=== PATIENT | male | born 1960 | race Caucasian/White ===

== ENCOUNTER 2017-09-20 16:42 | Emergency (ER) | payer BC ==
[~2017-09-20 16:42] MED LIST: AMLO-104 PO; AMLO-96 PO; ASPI-1471 PO; ATEN-65 PO; ATOR40TA69 PO; ATR10 PO; BLOO-1318 MC; CARV12.578 PO; CARV25TA78 PO; CIPR-344 PO; CLIN300C99 PO; CLOP75TA PO; CLOP75TA43 PO; FURO-47 PO; HCTZ25 PO; HYDR-4309 PO; INSU100V24 SQ; ISOS20TA64 PO; LANI SUBQ; LISI-374 PO; LISI20TA29 PO; METF-410 PO; METF-420 PO; METO25TA23 PO; NAPR220C12 PO; NOVALOG SC; NOVOLOG SUBQ; NPH SC; PHEN100T27 PO; POTA-23 PO; SIMV-54 PO; SIMV-59 PO; SIMV5TAB60 PO; [UNRECOGNIZED DRUG - CODE] IM
--- NOTE | 2017-09-20 16:48 | ER Report ---
History and Physical Time Seen By MD: 16:47 HPI/ROS CHIEF COMPLAINT: neck and left arm pain HISTORY OF PRESENT ILLNESS: Pt has been having a dullache in left side of his neck into his shoulder and down his tricep. No numbness to arm or weakness. Pain occurs at anytime, rest or exertion. Gets the pain 4-5 times a day and length of time varies, Pt has been getting these episodes for last few weeks. Pt decided today to go to urgent care to have it checked. Pt has a cardiac hx and when he had his heart attack he had pain in his neck and arm. PT ws sent for urgent care to emergency room. Pt denies pain in chest with these episodes "just neck and arm". Pt has not had any chest pain episodes since he had his CABG in 2013. no sob. no nausea. REVIEW OF SYSTEMS: Constitutional: No fever, no chills. Eyes: No discharge. ENT: No sore throat. Cardiovascular: No chest pain, no palpitations. Respiratory: No cough, no shortness of breath. Gastrointestinal: No abdominal pain, no vomiting. Genitourinary: No hematuria. Musculoskeletal: No back pain. + left side of neck pain, + shoulder and arm pain on left Skin: No rashes. Neurological: No headache. Allergies: Coded Allergies: No Known Allergies (Verified Allergy, Mild, 10/17/16) Home Meds Active Scripts Blood Sugar Diagnostic (ONE TOUCH ULTRA TEST STRIPS) 1 Each Strip, 1 EACH MC TID , #100 STRIP PRN Refills use to test blood sugars three times daily Prov:WILLOW PINA APRNP-C 05/02/17 Insulin Glargine (LANTUS) 100 Unit/Ml Soln, 46 UNIT SUBQ BID, #4 VIAL 14 Refills Prov:WILLOW PINA APRN APPLICATIONS SCIENTIST-C 04/09/17 Lisinopril (LISINOPRIL) 40 Mg Tablet, 1 TAB PO QDAY, #90 TAB 3 Refills Prov:WILLOW PINA APRNP-C 04/09/17 Carvedilol (CARVEDILOL) 25 Mg Tablet, 1 TAB PO BID, #180 TAB 3 Refills Prov:WILLOW PINA APRN APPLICATIONS SCIENTIST-C 11/09/16 Insulin Aspart (NOVOLOG) 100 Unit/Ml Soln, 16-20 UNIT SUBQ TIDAC, #2 VIAL 11 Refills 16 units plus 1 unit for every 50 above 100 on blood sugar Prov:WILLOW PINA APRN APPLICATIONS SCIENTIST-C 10/04/16 Metformin Hcl (METFORMIN HCL) 500 Mg Tablet, 2 TAB PO BID, #360 TAB 4 Refills TAKE TWO TABLETS BY MOUTH TWO TIMES A DAY WITH FOOD Prov:NEOGENET Marin DNP, APPLICATIONS SCIENTIST-BC 10/02/16 Reported Medications Naproxen Sodium (ALEVE) 220 Mg Capsule, 440 MG PO TID Y for PAIN/HEADACHE, CAPSULE 11/30/15 Atorvastatin Calcium (ATORVASTATIN CALCIUM) 40 Mg Tablet, 1 TAB PO DAILY, #90 11/01/15 Amlodipine Besylate (AMLODIPINE BESYLATE) 5 Mg Tablet, 1 TAB PO DAILY, #90 11/01/15 Syringe, Disposable, 1 ml (Easy Touch Luer Lock Syringe) 1 Each Disp.syrin, SYR IM BID, #100 8 Refills 10/08/15 Aspirin (ASPIR 81) 81 Mg Tablet.dr, 1 TAB PO QDAY, TAB 04/15/14 Past Medical/Surgical History Pmhx: dm, cad, hyperlipid, htn, mi Pshx; cabg (2 vessel, 08/08); PTCA (coronary 06/06) Reviewed Nurses Notes: Yes Old Medical Records Reviewed: Yes Hx Smoking: No Smoking Status: Never Smoker Exposure to Second Hand Smoke?: Yes (SOMETIMES) Hx Substance Use Disorder: No Hx Alcohol Use: Yes Constitutional Vital Sign - Last 24 Hours 09/20/17 09/20/17 09/20/17 09/20/17 16:42 16:47 16:49 16:52 Temp 98.8 Pulse ? 75 ??? Resp 16 B/P (MAP) 218/108 Pulse Ox 92 93 O2 Delivery Room Air 09/20/17 09/20/17 09/20/17 09/20/17 16:53 16:57 16:59 17:02 Pulse 75 73 Resp 6 19 B/P (MAP) 218/106 (143) 213/102 (139) Pulse Ox 95 94 Physical Exam General Appearance: The patient is alert, has no immediate need for airway protection and no signs of toxicity. Eyes: Pupils equal and round no pallor or injection, EOMI ENT: no pharyngeal erythema or exudates, Mucous membranes are moist, Respiratory: There are no retractions, lungs are clear to auscultation. Cardiovascular: Regular rate and rhythm. pulses are equal and symmetrical Gastrointestinal: Abdomen is soft and non tender, no masses, bowel sounds normal, no guarding, no rigidity or rebound Neurological: Cranial nerves II-XII grossly intact, no sensory or motor loss Skin: Warm and dry, no rashes. Musculoskeletal: Neck is supple non tender, no vertebral tenderness Extremities are nontender, non swollen and have full range of motion. DIFFERENTIAL DIAGNOSIS: After history and physical exam differential diagnosis was considered for acs, mi, muscleskeletal, cervical radiculopathy Medical Decision Making Data Points Result Diagram: 09/20/17 1653 09/20/17 1653 Laboratory Hematology Test 09/20/17 16:53 Red Blood Count 5.42 M/uL (4.00-5.60) Mean Corpuscular Volume 92.4 fL (80.0-96.0) Mean Corpuscular Hemoglobin 32.0 pg (26.0-33.0) Mean Corpuscular Hemoglobin Concent 34.7 g/dL (32.0-36.0) Red Cell Distribution Width 13.6 % (11.5-14.5) Mean Platelet Volume 9.0 fL (7.2-11.1) Neutrophils (%) (Auto) 67.4 % (39.4-72.5) Lymphocytes (%) (Auto) 18.4 % (17.6-49.6) Monocytes (%) (Auto) 9.1 % (4.1-12.4) Eosinophils (%) (Auto) 4.3 % (0.4-6.7) Basophils (%) (Auto) 0.8 % (0.3-1.4) Nucleated RBC Relative Count (auto) 0.0 /100WBC Neutrophils # (Auto) 8.0 K/uL (2.0-7.4) Lymphocytes # (Auto) 2.2 K/uL (1.3-3.6) Monocytes # (Auto) 1.1 K/uL (0.3-1.0) Eosinophils # (Auto) 0.5 K/uL (0.0-0.5) Basophils # (Auto) 0.1 K/uL (0.0-0.1) Nucleated RBC Absolute Count (auto) 0.00 K/uL Sodium Level 139 mmol/L (137-145) Potassium Level 3.8 mmol/L (3.5-5.0) Chloride Level 101 mmol/L (98-107) Carbon Dioxide Level 29 mmol/L (22-30) Blood Urea Nitrogen 13 mg/dl (9-21) Creatinine 1.20 mg/dl (0.66-1.25) Glomerular Filtration Rate Calc > 60.0 Random Glucose 129 mg/dl (75-110) Calcium Level 8.8 mg/dl (8.4-10.2) Total Bilirubin 0.4 mg/dl (0.2-1.3) Aspartate Amino Transf (AST/SGOT) 23 U/L (0-35) Alanine Aminotransferase (ALT/SGPT) 28 U/L (0-56) Alkaline Phosphatase 93 U/L (0-126) Troponin I < 0.012 ng/ml Total Protein 7.1 gm/dl (6.3-8.2) Albumin 3.5 g/dl (3.5-5.0) Chemistry Test 09/20/17 16:53 White Blood Count 11.8 k/uL (4.5-11.0) Red Blood Count 5.42 M/uL (4.00-5.60) Hemoglobin 17.4 g/dL (14.0-18.0) Hematocrit 50.0 % (42.0-52.0) Mean Corpuscular Volume 92.4 fL (80.0-96.0) Mean Corpuscular Hemoglobin 32.0 pg (26.0-33.0) Mean Corpuscular Hemoglobin Concent 34.7 g/dL (32.0-36.0) Red Cell Distribution Width 13.6 % (11.5-14.5) Platelet Count 260 K/uL (150-450) Mean Platelet Volume 9.0 fL (7.2-11.1) Neutrophils (%) (Auto) 67.4 % (39.4-72.5) Lymphocytes (%) (Auto) 18.4 % (17.6-49.6) Monocytes (%) (Auto) 9.1 % (4.1-12.4) Eosinophils (%) (Auto) 4.3 % (0.4-6.7) Basophils (%) (Auto) 0.8 % (0.3-1.4) Nucleated RBC Relative Count (auto) 0.0 /100WBC Neutrophils # (Auto) 8.0 K/uL (2.0-7.4) Lymphocytes # (Auto) 2.2 K/uL (1.3-3.6) Monocytes # (Auto) 1.1 K/uL (0.3-1.0) Eosinophils # (Auto) 0.5 K/uL (0.0-0.5) Basophils # (Auto) 0.1 K/uL (0.0-0.1) Nucleated RBC Absolute Count (auto) 0.00 K/uL Glomerular Filtration Rate Calc > 60.0 Calcium Level 8.8 mg/dl (8.4-10.2) Total Bilirubin 0.4 mg/dl (0.2-1.3) Aspartate Amino Transf (AST/SGOT) 23 U/L (0-35) Alanine Aminotransferase (ALT/SGPT) 28 U/L (0-56) Alkaline Phosphatase 93 U/L (0-126) Troponin I < 0.012 ng/ml Total Protein 7.1 gm/dl (6.3-8.2) Albumin 3.5 g/dl (3.5-5.0) EKG/Imaging EKG Interpretation nsr @ 70 with when compared to 21-Sep-2014 no significant change ED Course/Re-evaluation Clinical Indication for ER IV: IV Access ED Course 09/20/2017 5:47:10 pm PTs troponin is normal and pt has been having symptoms 3 weeks on and off. Pt has never had cp but only scapula and arm pain which is most consistent with cervical radiculopathy. Pts blood pressure however is extremely elevated in ED. pt states his baseline is usually around 140/90 on three medications which he has been taking. PT is due for his evening htn meds shortly. will give dose of nitro to reduce his bp. Decision to Disposition Date: Sep 20, 2017 Decision to Disposition Time: 18:17 Depart Departure Latest Vital Signs Vital Signs Date Time Temp Pulse Resp B/P (MAP) Pulse Ox O2 Delivery O2 Flow Rate FiO2 09/20/17 17:02 73 19 94 09/20/17 16:59 213/102 (139) 09/20/17 16:49 98.8 Room Air Impression: Primary Impression: Cervical radicular pain Additional Impression: Hypertension Condition: Improved Disposition: HOME OR SELF-CARE Referrals: WILLOW PINA APRN APPLICATIONS SCIENTIST-C (PCP) 2 Days LUDWIG SMITH MD [facility] New Scripts Hydrocodone Bit/Acetaminophen (HYDROCODON-ACETAMINOPHEN 5-325) 1 Each Tablet 1 EACH PO Q4-6H Y for PAIN, #15 TAB Prov: HAMZAH ALVAREZ V DO 09/20/17 Methocarbamol (ROBAXIN-750) 750 Mg Tablet 750 MG PO Q4-6H Y for MUSCLE SPASMS, #30 TAB Prov: HAMZAH ALVAREZ V DO 09/20/17 Patient Instructions: Cervical Radiculopathy (GEN) Additional Instructions: Your xray today shows changes in cervical 5-7 with disc space narrowing. Cervical changes can cause pain down your arm. Recommend follow up with family doctor or orthopedics for further evaluation. You may need MRI to further evaluate. Robaxin one every 4-6 hours as needed for musclespasms and pain. Lortab one every 4 hours as needed for moderate pain (narcotic). Take your blood pressure medication. Problem Qualifiers Additional Impression: Hypertension Hypertension type: essential hypertension Qualified Codes: I10 - Essential ( primary) hypertension ANTONIOHAMZAH Severiano KRISHNA Sep 20, 2017 16:48
[2017-09-20] MEDS ORDERED: ASPIRIN 81 MG CHEW PO ONE (17:00)
[2017-09-20 17:10] LABS: PLATELET COUNT, AUTOMATED 260 K/uL (150-450)
--- NOTE | 2017-09-20 17:35 | EKG ---
[place] [facility] [place] NAME: DENAE LAWRENCE : [id number] MR: [id number] V: [id number] EXAM DATE: ORDERING PHYSICIAN: HAMZAH ALVAREZ TECHNOLOGIST: DIMAS Walton Reason : CARDIAC PROBLEM Blood Pressure : / mmHG Vent. Rate : 069 BPM Atrial Rate : 069 BPM P-R Int : 134 ms QRS Dur : 090 ms QT Int : 398 ms P-R-T Axes : 051 081 065 degrees QTc Int : 426 ms Normal sinus rhythm ST abnormality, possible digitalis effect Abnormal ECG When compared with ECG of 21-SEP-2014 16:15, No significant change was found Confirmed by JOSAFAT ROSAS ([id number]) on 09/21/2017 6:39:18 AM Referred By: Confirmed By:JOSAFAT ROSAS
[2017-09-20] MEDS ORDERED: NITROGLYCERIN 0.4 MG SUBL SL ONE (17:45)
--- NOTE | 2017-09-20 17:48 | RADIOLOGY IMAGING REPORT ---
FACILITY: [facility] [place] PATIENT NAME: Samanta Ellington : 1960 MR: [id number] V: [id number] EXAM DATE: ORDERING PHYSICIAN: HAMZAH ALVAREZ TECHNOLOGIST: Location: [facility] [place] Patient: Samanta Ellington : 1960 Visit/Account:[id number] Date of Sevice: 09/20/2017 Exam type: CERVICAL SPINE 2 OR 3 VIEW History: Chest pain, left-sided arm pain, open heart surgery four years ago Comparison: None. Findings: There is moderate disc space narrowing at C5-6 and C6-7. There is no evidence of acute fractures or subluxations in the cervical spine. No evidence of prevertebral soft tissue swelling. There are ext ensive vascular calcifications both sides of the neck likely vascular in etiology IMPRESSION: 1. Moderate spondylotic changes at C5-6 and C6-7 Extensive vascular calcifications both sides of the neck likely within the carotid arteries Report Dictated By: China Titus MD at 09/20/2017 5:42 PM Report E-Signed By: China Titus MD at 09/20/2017 5:43 PM WSN:[email or web address]
--- NOTE | 2017-09-20 17:49 | RADIOLOGY IMAGING REPORT ---
FACILITY: [facility] PATIENT NAME: Samanta Ellington : 1960 MR: [id number] V: [id number] EXAM DATE: ORDERING PHYSICIAN: HAMZAH ALVAREZ TECHNOLOGIST: [place] [facility] [place] Patient: Samanta Ellington : 1960 Visit/Account:[id number] Date of Sevice: 09/20/2017 Exam type: CHEST PA AND LAT History: Chest Pain Comparison: September 21, 2014. Findings: Sternotomy sutures again noted. No evidence of acute pulmonary consolidation, pleural effusions or o vert pulmonary edema.. Cardiac silhouette is unchanged in size. There are moderate spondylotic durant ges of the thoracic spine. IMPRESSION: 1. No acute cardiopulmonary process is seen Report Dictated By: China Titus MD at 09/20/2017 5:43 PM Report E-Signed By: China Titus MD at 09/20/2017 5:45 PM WSN:[email or web address]
[2017-09-20] MEDS ORDERED: METH-543 PO (18:20)
[2017-09-20] MEDS ORDERED: LOR5/325 PO (18:20)
[2017-09-20] MEDS ORDERED: METHOCARBAMOL 500 MG TAB PO ONE (18:25)
[2017-09-20 18:50] VITALS: BP 185/99
== END 2017-09-20 18:58 | disposition home or self-care (01) ==
LOC: ER 16:48
DX: M54.12 Radiculopathy, cervical region (principal); I10 Essential (primary) hypertension; R94.31 Abnormal electrocardiogram [ECG] [EKG]
CPT/HCPCS: 71046; 72040; 82040; 82247; 82310; 82374; 82435; 82565; 82947; 84075; 84132; 84155; 84295; 84450; 84460; 84484; 84520; 85025; 93005; 99284

== ENCOUNTER → 2017-09-28 | Outpatient (CLI) | payer BC ==
[~2017-09-28] MED LIST changes: +AMOX-559 PO; +LOR5/325 PO; +METH-543 PO; +PRED20TA6 PO
--- NOTE | 2017-09-28 11:54 | RADIOLOGY IMAGING REPORT ---
FACILITY: [facility] PATIENT NAME: Samanta Ellington : 1960 MR: [id number] V: [id number] EXAM DATE: ORDERING PHYSICIAN: MARGARITO HANSEN TECHNOLOGIST: Location: [facility] Patient: Samanta Ellington : 1960 Visit/Account:[id number] Date of Sevice: 09/28/2017 Technique: CHEST PA AND LAT HISTORY: worsening cough x2 wks Comparison studies: Chest radiographs September 20, 2017 FINDINGS: No lobar airspace consolidation. No pleural effusion. The cardiomediastinal silhouette is unchanged. IMPRESSION: 1. No acute cardiopulmonary process. Report Dictated By: Viraj Whipple DO at 09/28/2017 11:48 AM Report E-Signed By: Viraj Whipple DO at 09/28/2017 11:51 AM WSN:[id number]
== END ==
LOC: RAD 11:13
PROVIDERS: ATTEND Nurse Practitioner Family
DX: R05 Cough (principal)
CPT/HCPCS: 71046

== ENCOUNTER → 2018-01-15 | Outpatient (CLI) | payer BC ==
[~2018-01-15] MED LIST changes: +BENZ200C15 PO; +LOSA100T67 PO; -METF-410 PO; +METF-411 PO; +NEED-653 SC; -SIMV-59 PO; +SIMV-63 PO
== END ==
LOC: LAB 17:15
PROVIDERS: ATTEND Nurse Practitioner Family
DX: Z02.9 Encounter for administrative examinations, unspecified (principal)

== ENCOUNTER 2018-04-12 13:08 | Outpatient (RCR) | payer BC ==
[~2018-04-12 13:08] MED LIST changes: +AMLO-111 PO; -AMLO-96 PO; -HYDR-4309 PO; +HYDR-653 PO; -LOSA100T67 PO; +LOSA100T69 PO; -METF-411 PO; +METF-450 PO; +NOVOLOG ASDIRECTED
--- NOTE | 2018-04-12 16:23 | Medical Nutrition Therapy ---
Nutritional Education Nutrition Education Topic: Diabetic Nutrition (insulin pump training) Learning Readiness: Interested Teaching Methods: Discussion, Handout, Demonstration Response to Teaching: Verbalize understanding, Reinforcement needed Teaching Recipient: Patient Nutrition Counseling: Provided insulin pump training per medtronic training list. Pt has following setting: Basel rate 2.7 Mx basel 3.5 CHO ratio 7.5 preset bolus 12 ISF 17 taget ranges 100-140 Active insulin hrs 3 Will call pt Sat afternoon and Sunday morning for f/u. Work and home phone numbers and was advised to call if any questions or concerns. Nutrition Monitoring & Eval RD Assessment Type: RD Education Nutritional Comment: provided 2.5 hrs medtronic minimed 630 training and insertion of insulin pump Copies To Copies to: WILLOW PINA APRNP-C ; MAHESH MCMAHON Apr 12, 2018 16:23
--- NOTE | 2018-04-15 12:38 | Medical Nutrition Therapy ---
Nutritional Education Nutrition Education Topic: Diabetic Nutrition Learning Readiness: Interested Response to Teaching: Verbalize understanding, Reinforcement needed Teaching Recipient: Patient Nutrition Counselin/19- 24 hr f/u phone call. Pt states pump not working, had BG of > 400 at 02:00. Pt thinks it is not delivering insulin. Pt gave insulin by syring and BG returned to 125. After discussion, plan made for pt to remove pum, go back to syringes and come in Sun,04/15 for another training. 04/15 08:00 Reviewed pump setting. Pt was recieving basel per pump. Pt misundersood bolis and gave 0.2 U bolis manually rather than 12 per pre-set bolis. Reviewed what is a bolis vs basel. Observed pt re-attached pump, checked BG and delivered bolis wizard of correction dose. Reviewed importance of checking that delivery was given and reviewed active insulin. Encourage pt to use CHO counting when he eats a packaged food that has CHPO amount listed. Pt will return at 16:30 to ensure pump is working correctly and pt understands. Nutrition Monitoring & Eval RD Patient Assessment Time: [address] Assessment Type: RD Education Nutritional Comment: provided 60 med[employer] 630 training Copies To Copies to: WILLOW PINA APRN MANAGER MEMBERSHIP-C ; MAHESH MCMAHON Apr 15, 2018 12:38
--- NOTE | 2018-04-24 12:08 | Medical Nutrition Therapy ---
Nutritional Education Nutrition Education Topic: Diabetic Nutrition Learning Readiness: Interested Teaching Methods: Discussion, Handout, Demonstration Response to Teaching: Verbalize understanding Teaching Recipient: Patient Nutrition Counseling: Pt cannned f/u appt on 04/15. Pt states he felt sick and was going to ER. After discussion, recommend pt d/c pump and we will start from scratch with education after he is feeling better. Pt called back 04/18, he was feeling better and wanted to resart pump. Appt made for 04/22. Pt was restarted on pump and basal, bolis, preset bolus and bolus wizard review. 04/24 Pt having no concerns but has been running low in am and low after lunch and brft meals. Preset bolus changed to 10 for brkft and lunch meal, remains 12 at supper meal. Basel chaned to 2.5 from 02:00 - 06:00. Nutrition Monitoring & Eval RD Patient Assessment Time: [address] Assessment Type: RD Education Nutritional Comment: provided 30 [email or web address] 630 training Copies To Copies to: WILLOW PINA APRNP-C ; MAHESH MCMAHON Apr 24, 2018 12:08
== END 2018-05-17 ==
LOC: DIET 13:08
PROVIDERS: ATTEND Nurse Practitioner Family
DX: E11.65 Type 2 diabetes mellitus with hyperglycemia (principal); Z79.4 Long term (current) use of insulin

== ENCOUNTER 2018-04-16 14:19 | Emergency (ER) | payer BC ==
--- NOTE | 2018-04-16 14:34 | ER Report ---
History and Physical Time Seen By MD: 14:34 Hx. of Stated Complaint: pt reports headache, shortness of breath, "haven't felt great ~2 weeks" HPI/ROS CHIEF COMPLAINT: Shortness of breath HISTORY OF PRESENT ILLNESS: 57-year-old male patient presents to emergency room with complaint of shortness of breath. Patient states that he was having problems with his insulin pump. He states that he did several episodes where he would drop below with his blood sugar. Patient states that he got a new pump that wasn't quite working well over the weekend. He states that he finally has that fixing is working well today. He states that he's noticed these been short of breath. He states that he was feeling like he was having hard time catching his breath earlier today. He states these also noticed that with activity such as work he's become short of breath. He denies any fevers or chills. Patient states he has had some sinus congestion with drainage. He denies having a productive cough. Patient states he is not taking any medication for this. REVIEW OF SYSTEMS: Respiratory: As noted above Cardiovascular: No chest pain, no palpitations. Gastrointestinal: No vomiting, no abdominal pain. Musculoskeletal: No back pain. Allergies: Coded Allergies: No Known Allergies (Verified Allergy, Mild, 04/16/18) Home Meds Active Scripts Insulin Aspart (NOVOLOG) 100 Unit/Ml Soln, 130 UNIT ASDIRECTED DAILY, #5 VIAL 1 Refill Administer as directed per insulin pump Prov:WILLOW PINA APRNP-C 03/21/18 [place], Insulin Disposable (Bd Ultra-Fine Pen Needle) 1 Each Dis.needle, BOX CT, #1 6 Refills Use to injection insulin 5 times per day Prov:WILLOW PINA APRN LOAN PROCESSOR-C 12/20/17 Carvedilol (CARVEDILOL) 25 Mg Tablet, 1 TAB PO BID, #180 TAB PRN Refills Prov:WILLOW PINA APRN LOAN PROCESSOR-C 12/06/17 Losartan Potassium (LOSARTAN POTASSIUM) 100 Mg Tablet, 1 TAB PO QDAY, #90 TAB 3 Refills Prov:WILLOW PINA APRN LOAN PROCESSOR-C 11/09/17 Metformin Hcl (METFORMIN HCL) 500 Mg Tablet, 2 TAB PO BID, #360 TAB 3 Refills TAKE TWO TABLETS BY MOUTH TWO TIMES A DAY WITH FOOD Prov:WILLOW PINA APRNP-C 10/26/17 Blood Sugar Diagnostic (ONE TOUCH ULTRA TEST STRIPS) 1 Each Strip, 1 EACH MC TID, #100 STRIP PRN Refills use to test blood sugars three times daily Prov:WILLOW PINA APRNP-C 05/02/17 Reported Medications Naproxen Sodium (ALEVE) 220 Mg Capsule, 440 MG PO TID PRN for PAIN/HEADACHE, CAPSULE 11/30/15 Atorvastatin Calcium (ATORVASTATIN CALCIUM) 40 Mg Tablet, 1 TAB PO DAILY, #90 11/01/15 Amlodipine Besylate (AMLODIPINE BESYLATE) 5 Mg Tablet, 1 TAB PO DAILY, #90 11/01/15 Syringe, Disposable, 1 ml (Easy Touch Luer Lock Syringe) 1 Each Disp.syrin, SYR IM BID, #100 8 Refills 10/08/15 Aspirin (ASPIR 81) 81 Mg Tablet.dr, 1 TAB PO QDAY, TAB 04/15/14 Discontinued Scripts Insulin Glargine (LANTUS) 100 Unit/Ml Soln, 42-46 UNIT SUBQ BID, #4 VIAL 14 Refills 46 units in the AM and 42 units in the PM Prov:WILLOW PINA APRNP-C 02/07/18 Benzonatate (BENZONATATE) 200 Mg Capsule, 1 CAP PO TID PRN for COUGH, #15 CAPSULE 0 Refills Prov:WILLOW PINA APRNP-C 10/17/17 Hydrocodone Bit/Acetaminophen (HYDROCODON-ACETAMINOPHEN 5-325) 1 Each Tablet, 1 EACH PO Q4-6H PRN for PAIN, #15 TAB Prov:LAURHAMZAH WAN V DO 09/20/17 Methocarbamol (ROBAXIN-750) 750 Mg Tablet, 750 MG PO Q4-6H PRN for MUSCLE SPASMS, #30 TAB Prov:LAURORAGERMAINEHAMZAH V DO 09/20/17 Past Medical/Surgical History Patient has a past medical history of hypertension, hyperlipidemia, reflux, finger fracture, type 2 diabetes, occasional alcohol use. Patient has surgical history of CABG, stent, laser treatment right eye. Reviewed Nurses Notes: Yes Hx Smoking: No Smoking Status: Never Smoker Exposure to Second Hand Smoke?: Yes (SOMETIMES) Hx Substance Use Disorder: No Hx Alcohol Use: Yes (OCC) Constitutional Vital Sign - Last 24 Hours 04/16/18 04/16/18 14:24 15:54 Temp 98.7 Pulse 70 Resp 18 B/P (MAP) 187/98 156/87 (110) Pulse Ox 93 O2 Delivery Room Air Physical Exam General Appearance: The patient is alert, has no immediate need for airway protection and no current signs of toxicity. Respiratory: Chest is non tender, lungs are clear to auscultation. Cardiac: regular rate and rhythm Gastrointestinal: Abdomen is soft and non tender, no masses, bowel sounds normal. Musculoskeletal: Neck: Neck is supple and non tender. Extremities have full range of motion and are non tender. Skin: No rashes or lesions. DIFFERENTIAL DIAGNOSIS: After history and physical exam differential diagnosis was considered for shortness of breath including but not limited to pulmonary infectious process, COPD, asthma, pulmonary embolus and congestive heart fa ilure. Medical Decision Making Data Points Result Diagram: 04/16/18 1500 04/16/18 1500 Laboratory Hematology Test 04/16/18 15:00 Red Blood Count 5.07 M/uL (4.00-5.60) Mean Corpuscular Volume 92.7 fL (80.0-96.0) Mean Corpuscular Hemoglobin 32.3 pg (26.0-33.0) Mean Corpuscular Hemoglobin Concent 34.8 g/dL (32.0-36.0) Red Cell Distribution Width 13.7 % (11.5-14.5) Mean Platelet Volume 9.1 fL (7.2-11.1) Neutrophils (%) (Auto) 65.9 % (39.4-72.5) Lymphocytes (%) (Auto) 20.8 % (17.6-49.6) Monocytes (%) (Auto) 7.7 % (4.1-12.4) Eosinophils (%) (Auto) 4.8 % (0.4-6.7) Basophils (%) (Auto) 0.8 % (0.3-1.4) Nucleated RBC Relative Count (auto) 0.0 /100WBC Neutrophils # (Auto) 5.4 K/uL (2.0-7.4) Lymphocytes # (Auto) 1.7 K/uL (1.3-3.6) Monocytes # (Auto) 0.6 K/uL (0.3-1.0) Eosinophils # (Auto) 0.4 K/uL (0.0-0.5) Basophils # (Auto) 0.1 K/uL (0.0-0.1) Nucleated RBC Absolute Count (auto) 0.00 K/uL Sodium Level 137 mmol/L (137-145) Potassium Level 3.5 mmol/L (3.5-5.0) Chloride Level 99 mmol/L (98-107) Carbon Dioxide Level 27 mmol/L (22-30) Blood Urea Nitrogen 12 mg/dl (9-21) Creatinine 1.00 mg/dl (0.66-1.25) Glomerular Filtration Rate Calc > 60.0 Random Glucose 153 mg/dl (75-110) Calcium Level 8.6 mg/dl (8.4-10.2) Total Bilirubin 0.4 mg/dl (0.2-1.3) Aspartate Amino Transf (AST/SGOT) 33 U/L (0-35) Alanine Aminotransferase (ALT/SGPT) 41 U/L (0-56) Alkaline Phosphatase 69 U/L (0-126) Troponin I < 0.012 ng/ml Total Protein 6.3 g/dl (6.3-8.2) Albumin 3.3 g/dl (3.5-5.0) Chemistry Test 04/16/18 15:00 White Blood Count 8.2 k/uL (4.5-11.0) Red Blood Count 5.07 M/uL (4.00-5.60) Hemoglobin 16.4 g/dL (14.0-18.0) Hematocrit 47.0 % (42.0-52.0) Mean Corpuscular Volume 92.7 fL (80.0-96.0) Mean Corpuscular Hemoglobin 32.3 pg (26.0-33.0) Mean Corpuscular Hemoglobin Concent 34.8 g/dL (32.0-36.0) Red Cell Distribution Width 13.7 % (11.5-14.5) Platelet Count 254 K/uL (150-450) Mean Platelet Volume 9.1 fL (7.2-11.1) Neutrophils (%) (Auto) 65.9 % (39.4-72.5) Lymphocytes (%) (Auto) 20.8 % (17.6-49.6) Monocytes (%) (Auto) 7.7 % (4.1-12.4) Eosinophils (%) (Auto) 4.8 % (0.4-6.7) Basophils (%) (Auto) 0.8 % (0.3-1.4) Nucleated RBC Relative Count (auto) 0.0 /100WBC Neutrophils # (Auto) 5.4 K/uL (2.0-7.4) Lymphocytes # (Auto) 1.7 K/uL (1.3-3.6) Monocytes # (Auto) 0.6 K/uL (0.3-1.0) Eosinophils # (Auto) 0.4 K/uL (0.0-0.5) Basophils # (Auto) 0.1 K/uL (0.0-0.1) Nucleated RBC Absolute Count (auto) 0.00 K/uL Glomerular Filtration Rate Calc > 60.0 Calcium Level 8.6 mg/dl (8.4-10.2) Total Bilirubin 0.4 mg/dl (0.2-1.3) Aspartate Amino Transf (AST/SGOT) 33 U/L (0-35) Alanine Aminotransferase (ALT/SGPT) 41 U/L (0-56) Alkaline Phosphatase 69 U/L (0-126) Troponin I < 0.012 ng/ml Total Protein 6.3 g/dl (6.3-8.2) Albumin 3.3 g/dl (3.5-5.0) EKG/Imaging Imaging CHEST PA AND LAT Indication: Shortness of breath. Comparison: Chest x-ray 09/28/2017 Findings: Lungs: Right hemidiaphragm is elevated, new from the prior study. The lungs are clear. Mediastinum/pulmonary vasculature: Heart size and pulmonary vasculature are normal. Bones/soft tissues: Normal. IMPRESSION: 1. Elevated right hemidiaphragm, new from comparison 09/28/2017. 2. Clear lungs. 3. Postoperative changes with sternotomy wires, stable. Report Dictated By: Marvel Zamudio at 04/16/2018 3:25 PM Report E-Signed By: Marvel Zamudio at 04/16/2018 3:26 PM ED Course/Re-evaluation ED Course Patient was admitted to an exam room, history and physical were obtained. Di fferential diagnoses were considered. On examination lungs are clear, heart is regular, abdomen soft nontender. A CBC, CMP, EKG, troponin and chest x-ray were done. The results of the lab work was negative. EKG showed a normal sinus rhythm. Chest x-ray showed a right elevated hemidiaphragm. I discussed the findings with the patient. I believe the patient is likely having some shortness of breath secondary to the right elevated hemidiaphragm. I do not have any concerns of [place] at this time as patient's been having these symptoms for days. We will have him continue with his normal activity, increase fluid intake and follow-up with his primary care provider. Patient verbalized understanding and a greement with plan. Decision to Disposition Date: Apr 16, 2018 Decision to Disposition Time: 15:58 Depart Departure Latest Vital Signs Vital Signs Date Time Temp Pulse Resp B/P (MAP) Pulse Ox O2 Delivery O2 Flow Rate FiO2 04/16/18 15:54 156/87 (110) 04/16/18 14:24 98.7 70 18 93 Room Air Impression: Primary Impression: Acquired elevated hemidiaphragm Condition: Condition Unchanged Disposition: HOME OR SELF-CARE Referrals: WILLOW PINA APRNP-C (PCP) Departure Forms: Medications Reconciliation, Patient Portal Information, ER Transition Record Additional Instructions: Follow up with your primary care provider. Continue with normal activity. Return to the ER if condition worsens. Continue with current medications. FAHAD VALENZUELA Apr 16, 2018 14:34
[2018-04-16] MEDS ORDERED: NS(*) 0.9% 500 ML BAG 500 ML IV ONE (14:45)
[2018-04-16 15:25] LABS: PLATELET COUNT, AUTOMATED 254 K/uL (150-450)
--- NOTE | 2018-04-16 15:32 | RADIOLOGY IMAGING REPORT ---
FACILITY: [facility] PATIENT NAME: Samanta Ellington : 1960 MR: [id number] V: [id number] EXAM DATE: ORDERING PHYSICIAN: FAHAD VALENZUELA TECHNOLOGIST: Location: [facility] [place] Patient: Samanta Ellington : 1960 Visit/Account:[id number] Date of Sevice: 04/16/2018 CHEST PA AND LAT Indication: Shortness of breath. Comparison: Chest x-ray 09/28/2017 Findings: Lungs: Right hemidiaphragm is elevated, new from the prior study. The lungs are clear. Mediastinum/pulmonary vasculature: Heart size and pulmonary vasculature are normal. Bones/soft tissues: Normal. IMPRESSION: 1. Elevated right hemidiaphragm, new from comparison 09/28/2017. 2. Clear lungs. 3. Postoperative changes with sternotomy wires, stable. Report Dictated By: Marvel Zamudio at 04/16/2018 3:25 PM Report E-Signed By: Marvel Zamudio at 04/16/2018 3:26 PM WSN:[email or web address]
--- NOTE | 2018-04-16 15:47 | EKG ---
FACILITY: [facility] - [place] PATIENT NAME: DENAE LAWRENCE : [id number] MR: [id number] V: [id number] EXAM DATE: ORDERING PHYSICIAN: FAHAD VALENZUELA TECHNOLOGIST: DARRYL Test Reason : SOB Blood Pressure : / mmHG Vent. Rate : 073 BPM Atrial Rate : 073 BPM P-R Int : 134 ms QRS Dur : 092 ms QT Int : 396 ms P-R-T Axes : 003 081 064 degrees QTc Int : 436 ms Normal sinus rhythm Normal ECG When compared with ECG of 20-SEP-2017 17:02, No significant change was found Confirmed by JOSAFAT ROSAS ([id number]) on 04/16/2018 4:37:09 PM Referred By: DARON Confirmed By:JOSAFAT ROSAS
[2018-04-16 15:54] VITALS: BP 156/87
== END 2018-04-16 16:18 | disposition home or self-care (01) ==
LOC: ER 14:37
DX: J98.6 Disorders of diaphragm (principal)
CPT/HCPCS: 71046; 84484; 85025; 93005; 96360; 99284; J7040; 82040; 82247; 82310; 82374; 82435; 82565; 82947; 84075; 84132; 84155; 84295; 84450; 84460; 84520

== ENCOUNTER → 2018-09-23 | Outpatient (CLI) | payer BC ==
[~2018-09-23] MED LIST changes: -AMLO-111 PO; +AMLO-125 PO; +AMLO-127 PO; +BLOO1STR38 MC; -LOSA100T69 PO; +LOSA100T75 PO; +SIMV-117 PO; -SIMV-63 PO; -SIMV5TAB60 PO; +SIMV5TAB69 PO
== END ==
LOC: LAB 10:28
PROVIDERS: ATTEND Nurse Practitioner Family
DX: R79.89 Other specified abnormal findings of blood chemistry (principal)
CPT/HCPCS: 36415; 82310; 82374; 82435; 82565; 82947; 84132; 84295; 84520

== ENCOUNTER → 2018-10-07 | Outpatient (CLI) | payer BC ==
[~2018-10-07] MED LIST changes: +ASPI-764 PO
--- NOTE | 2018-10-07 15:24 | RADIOLOGY IMAGING REPORT ---
FACILITY: [facility] [place] PATIENT NAME: Samanta Ellington : 1960 MR: [id number] V: [id number] EXAM DATE: ORDERING PHYSICIAN: WILLOW PINA TECHNOLOGIST: Location: [facility] Patient: Samanta Ellington : 1960 Visit/Account:[id number] Date of Sevice: 10/07/2018 EXAMINATION: Ultrasound bilateral lower extremity CRUZ HISTORY: Claudication. Nonhealing sores left foot. Diabetic. COMPARISON: None. FINDINGS: Right lower extremity CRUZ-1.5 Left lower extremity CRUZ-1.5 IMPRESSION: Abnormally high ABIs of both lower extremities is suggestive of atherosclerosis and peripheral arteri al disease. Report Dictated By: Bella Mendez MD at 10/07/2018 3:15 PM Report E-Signed By: Bella Mendez MD at 10/07/2018 3:19 PM WSN:[email or web address]
== END ==
LOC: RAD 00:21
PROVIDERS: ATTEND Nurse Practitioner Family
DX: I73.9 Peripheral vascular disease, unspecified (principal)
CPT/HCPCS: 93922

== ENCOUNTER → 2018-11-25 | Outpatient (CLI) | payer BC ==
--- NOTE | 2018-11-25 16:25 | RADIOLOGY IMAGING REPORT ---
FACILITY: [facility] - [place] PATIENT NAME: Samanta Ellington : 1960 MR: [id number] V: [id number] EXAM DATE: ORDERING PHYSICIAN: JOSAFAT GAYTAN TECHNOLOGIST: Location: [facility] Patient: Samanta Ellington : 1960 Visit/Account:[id number] Date of Sevice: 11/25/2018 Exam type: FOOT 2 VIEW LEFT History: Gangrene of left toe, check for ulcer of left foot Comparison: None. Findings: There is no evidence of soft tissue gas. No evidence of laura bony erosion. There are mild degenera tive changes throughout the interphalangeal joints. Extensive vascular calcifications are present th roughout the visualized soft tissues. IMPRESSION: 1. Extensive vascular calcifications throughout the visualized soft tissues No evidence of laura bony erosion or soft tissue gas Report Dictated By: China Titus MD at 11/25/2018 4:18 PM Report E-Signed By: China Titus MD at 11/25/2018 4:20 PM WSN:[email or web address]
== END ==
LOC: RAD 12:58
PROVIDERS: ATTEND Surgery
DX: E11.621 Type 2 diabetes mellitus with foot ulcer (principal); I96 Gangrene, not elsewhere classified

== ENCOUNTER 2019-01-02 01:04 | Day surgery (SDC) | payer BC ==
[~2019-01-02] VITALS: Ht 180.3 cm; Wt 82.1 kg
[2019-01-02] VITALS (7 sets, daily range): BP systolic 118–132; BP diastolic 64–77
[~2019-01-02 01:04] MED LIST changes: +ASPI81TA94 PO; +PLAVIX
--- NOTE | 2019-01-02 06:46 | EKG ---
FACILITY: [facility] - [place] PATIENT NAME: DENAE LAWRENCE : [id number] MR: [id number] V: [id number] EXAM DATE: ORDERING PHYSICIAN: JOSAFAT LYONS TECHNOLOGIST: Test Reason : Pre-op Blood Pressure : / mmHG Vent. Rate : 067 BPM Atrial Rate : 067 BPM P-R Int : 138 ms QRS Dur : 084 ms QT Int : 386 ms P-R-T Axes : 009 074 054 degrees QTc Int : 407 ms Sinus rhythm Diffuse ST elevation - suspect early repolarization When compared with ECG of 16-APR-2018 15:02, No significant change was found Confirmed by NANCI DALEY ([id number]) on 01/02/2019 6:47:32 AM Referred By: Confirmed By:NANCI DALEY
[2019-01-02] MEDS ORDERED: ONDANSETRON 4 MG/2 ML VIAL ONE (06:50)
[2019-01-02] MEDS ORDERED: PROPOFOL EMUL(*) 10MG/ML 20 ML 20 ML ONE (06:50)
[2019-01-02] MEDS ORDERED: METOCLOPRAMIDE 10 MG/2 ML SDV ONE (06:50)
[2019-01-02] MEDS ORDERED: LIDOCAINE MPF 1% 5 ML VIAL ONE (06:50)
[2019-01-02] MEDS ORDERED: DEXAMETHASONE SOD 4 MG/ML VIAL ONE (06:51)
[2019-01-02] MEDS ORDERED: fentaNYL CITR 100 MCG/2 ML AMP ONE ×2 (06:53→07:45)
[2019-01-02] MEDS ORDERED: ROPIVACAINE 0.5% 20 ML VIAL ONE (07:19)
[2019-01-02] MEDS ORDERED: NEOMYCIN/POLYMYX/BACITR 30 GM TP ONE (07:19)
[2019-01-02] MEDS ORDERED: INSULIN HUM REG 100 UN/ML 3 ML VIAL SC ONE ×2 (07:20→10:45)
[2019-01-02] MEDS: AMPICILLIN/SULBACT (*) 3 GM VL 3 GM in NS(*) 0.9% 100 ML MINI-BAG 100 ML IVPB ONE ×2 (07:23→07:37)
[2019-01-02] MEDS ORDERED: LIDOCAINE/SOD BICARB 8.4% SYR ID ONE (08:35)
[2019-01-02] MEDS ORDERED: MIDAZOLAM 2 MG/2 ML VIAL IVP PRN (08:35)
[2019-01-02] MEDS ORDERED: NORMOSOL R SOLN(*) 1000 ML BAG 1,000 ML IV PRN (08:35)
[2019-01-02] MEDS ORDERED: FAMOTIDINE 20 MG TAB PO ONE (08:35)
[2019-01-02] MEDS ORDERED: TRAM-420 PO (09:16)
[2019-01-02] MEDS ORDERED: DOCU-416 PO (09:16)
[2019-01-02] MEDS ORDERED: INSU HUM REG 100 U/ML(ER ONLY) 10 ML VIAL SUBQ ONE (09:20)
--- NOTE | 2019-01-02 09:20 | Short(Outpt) Discharge Summary ---
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 (2) Ulcer of left foot due to type 2 diabetes mellitus Status: Chronic (3) Arteriosclerosis Status: Chronic (4) Coronary atherosclerosis Status: Acute Departure Discharge to: Home, Self Care Discharge Instructions Home Meds Active Scripts Docusate Sodium (COLACE) 100 Mg Capsule, 1 CAP PO BID, #30 CAP 0 Refills TAKE WITH A FULL GLASS OF WATER Prov:JOSAFAT GAYTAN MD 01/02/19 Tramadol Hcl (TRAMADOL HCL) 50 Mg Tablet, 1 TAB PO Q4H PRN for PAIN, #20 TAB 0 Refills Prov:JOSAFAT GAYTAN MD 01/02/19 Insulin Aspart (NOVOLOG) 100 Unit/Ml Soln, 130 UNIT ASDIRECTED DAILY, #15 VIAL 2 Refills Administer as directed per insulin pump Prov:WILLOW PINA APRNP-C 11/08/18 Amlodipine Besylate (AMLODIPINE BESYLATE) 10 Mg Tablet, 1 TAB PO QDAY, #90 TAB 1 Refill Prov:WILLOW PINA APRNP-C 09/23/18 Blood Sugar Diagnostic (CONTOUR NEXT) 1 Each Strip, 100 EA MC TID, #100 STRIP 5 Refills Prov:WILLOW PINA APRN OUTSIDE MACHINIST SUPERVISOR-C 05/31/18 Carvedilol (CARVEDILOL) 25 Mg Tablet, 1 TAB PO BID, #180 TAB PRN Refills Prov:WILLOW PINA APRN OUTSIDE MACHINIST SUPERVISOR-C 12/06/17 Losartan Potassium (LOSARTAN POTASSIUM) 100 Mg Tablet, 1 TAB PO QDAY, #90 TAB 3 Refills Prov:WILLOW PINA APRN OUTSIDE MACHINIST SUPERVISOR-C 11/09/17 Reported Medications Aspirin (ASPIRIN) 81 Mg Tab.chew, 81 MG PO QDAY, TAB.CHEW 12/24/18 Metformin Hcl (METFORMIN HCL) 500 Mg Tablet, 2 TAB PO QAM, TAB 12/24/18 Clopidogrel Bisulfate (PLAVIX) 75 Mg Tablet, 1 TAB PO QDAY, TAB 12/24/18 Naproxen Sodium (ALEVE) 220 Mg Capsule, 440 MG PO TID PRN for PAIN/HEADACHE, CAPSULE 11/30/15 Atorvastatin Calcium (ATORVASTATIN CALCIUM) 40 Mg Tablet, 1 TAB PO DAILY, #90 11/01/15 Follow up Referrals: General Surgery - 01/08/19 @ Surgery, General with JOSAFAT GAYTAN MD You have a follow up appointment scheduled with Dr. Gaytan on 01/08/19, at 4:00pm. Diet: Regular Activity: As Tolerated Special Instructions: You may remove the wrap and dressings on 01/04/19, then you can shower. After showering, apply antibiotic ointment (bacitracin or triple antibiotic ointment are OK) to your incisions and sutures once every day and cover the incisions with large bandaids. You can walk around as desired but avoid any direct contact of anything (any object, the floor, etc) with the incisions. Try an avoid kicking or stubbing your "toes" on anything while the incisons are healing. Problem Qualifiers (1) Coronary atherosclerosis: Coronary Disease-Associated Artery/Lesion type: cahto artery [place] vs. transplanted heart: cahto heart Associated angina: without angina Qualified Codes: I25.10 - Atherosclerotic heart disease of cahto coronary artery without angina pectoris JOSAFAT GAYTAN MD Jan 02, 2019 09:20
--- NOTE | 2019-01-02 09:30 | Post Operative Progress Note ---
Post Operative Progress Note Date: Jan 02, 2019 Time: 09:18 Surgeon: Serena Dictation number: [id number] Anesthesia: LMA by Dr. Wise Pre-Op Diagnosis: Arterial ulcers with ischemia on left great toe and 2nd and 3rd toes with dry gangrene on all three toes Post-Op Diagnosis: POOJA Findings: Ischemia with dry gangrene to toes 1-3 on left foot. Skin flaps with bleeding. Procedure(s): Amputation of left foot toes 1-3 Specimen Removed:(May be N/A): Left great toe Left 2nd toe Left 3rd toe Complications: None Total Tourniquet Time: No tourniquet used Fluids: See anesthesia record Estimated Blood Loss: Minimal Date OP Note Dictated: Jan 02, 2019 Time OP Note Dictated: 09:20 JOSAFAT GAYTAN MD Jan 02, 2019 09:30
--- NOTE | 2019-01-02 09:54 | OPERATIVE REPORT 1 ---
EVENT DATE: January 02, 2019 SURGEON: Carlito Lyons MD ANESTHESIOLOGIST: Carlito Wise MD ANESTHESIA: LMA. PREOPERATIVE DIAGNOSIS 1. Arteriosclerosis. 2. Diabetes. 3. Left foot arterial compromise with dry gangrene of the first, second, and third toes with obvious ischemia. POSTOPERATIVE DIAGNOSIS 1. Arteriosclerosis. 2. Diabetes. 3. Left foot arterial compromise with dry gangrene of the first, second, and third toes with obvious ischemia. PROCEDURE PERFORMED Amputation of toes 1 through 3 on the patient's left foot. COMPLICATIONS None. CONDITION Stable. ESTIMATED BLOOD LOSS Minimal. SPECIMENS 1. Left great toe. 2. Left second toe. 3. Left third toe. INDICATIONS This is a 58-year-old gentleman who was referred to me with gangrene on the dorsum of his left second toe and the distal half of his left third toe and he had a wound on the medial aspect of his left great toe. He had just gotten an angiogram with stenting of some lower extremity vessels, but his foot did not seem to improve after this. I gave it time to demarcate and ultimately consented him for amputation of third toe with debridement and possible amputation of the second toe and then simply debridement of the first toe because it did not at that time have gangrene. Since I last saw him in the office, he reports increasing duskiness and pain in the great toe and now has full gangrene on the medial aspect of the great toe. Because of this, I have discussed with him amputation of the first three toes which he has provided consent for. DESCRIPTION OF PROCEDURE The patient was brought to the operating room and placed supine on the operating table. LMA anesthesia was administered and his left foot and ankle were prepped and draped in sterile fashion. A timeout was completed and I marked the skin around all three of the toes and anesthetized around all three of the toes with 0.5% ropivacaine plain. I then started with the great toe and made a fish-mouth type incision preserving as much skin as I could, but just proximal to the ischemic area. I divided through all of the soft tissues down to bone and then the soft tissues from the proximal phalanx and all the way up to the MTP joint and then amputated toe through the MTP joint. As I was doing this, I saw oozing from the flaps which was reassuring. The tissue color was good. I then moved to the second toe and made the incision right through the skin galan in a fish-mouth type fashion and incised through all of the soft tissues down to bone and removed the toe through the PIP joint and then the soft tissues from the proximal phalanx and then divided the bone through the midshaft and passed this off the field. I then debrided the bone including the sharp edges with a rongeur and noticed bleeding from the soft tissue flaps in this area as well. I then amputated the third toe in exactly the same fashion as the second toe. After I was happy with how everything looked, I irrigated and dried the wounds and then closed the soft tissues including reapproximating the flexor and extensor tendons on each toe with interrupted 3-0 Vicryl sutures and then closed the skin with running 2-0 Nylon sutures on all three toes. I then cleaned and dried the skin and applied copious amounts of bacitracin antibiotic ointment over the incisions and then covered this with Xeroform and 4 x 4 gauze and then wrapped the foot in Kerlix and adi wraps. He was awakened and LMA removed, transported to the recovery room in stable condition having tolerated the procedure without any apparent problems. INDY
== END 2019-01-02 10:15 | disposition home or self-care (01) ==
LOC: OR 01:04
PROVIDERS: ATTEND Surgery
DX: I70.268 Atherosclerosis of native arteries of extremities with gangrene, other extremity (principal); E11.52 Type 2 diabetes mellitus with diabetic peripheral angiopathy with gangrene; I10 Essential (primary) hypertension
CPT/HCPCS: 28810; 36416; 82948; 88305; 88311; 93005; J0295; J1815; J2001; J2250; J2405; J2704; J2765; J2795; J3010; J1100

== ENCOUNTER → 2019-01-09 | Outpatient (CLI) | payer BC ==
[~2019-01-09] MED LIST changes: +AMOX1TAB9 PO; +DOCU-416 PO; +TRAM-420 PO
== END ==
LOC: AMB 17:56
PROVIDERS: ATTEND Nurse Practitioner
DX: E11.649 Type 2 diabetes mellitus with hypoglycemia without coma (principal)
CPT/HCPCS: A0998

== ENCOUNTER 2019-01-30 01:28 | Inpatient (IN) | payer BC ==
[~2019-01-30] VITALS: Ht 180.3 cm; Wt 75.3 kg
[2019-01-30] VITALS (13 sets, daily range): BP systolic 113–161; BP diastolic 66–82
[2019-01-30] MEDS ORDERED: ACETAMINOPHEN 500 MG TAB PO ONE (06:40)
[2019-01-30] MEDS ORDERED: PREGABALIN 150 MG CAPSULE PO ONE (06:40)
[2019-01-30] MEDS ORDERED: AMPICILLIN/SULBACT (*) 3 GM VL 3 GM in NS(*) 0.9% 100 ML MINI-BAG 100 ML IVPB ONE (06:40)
[2019-01-30] MEDS ORDERED: NORMOSOL R SOLN(*) 1000 ML BAG 1,000 ML IV PRN (06:45)
[2019-01-30] MEDS ORDERED: LIDOCAINE/SOD BICARB 8.4% SYR ID ONE (06:45)
[2019-01-30] MEDS ORDERED: MIDAZOLAM 2 MG/2 ML VIAL IVP PRN (06:45)
[2019-01-30] MEDS ORDERED: FAMOTIDINE 20 MG TAB PO ONE (06:45)
[2019-01-30] MEDS ORDERED: DEXAMETHASONE SOD 4 MG/ML VIAL ONE (07:11)
[2019-01-30] MEDS ORDERED: fentaNYL CITR 100 MCG/2 ML AMP ONE (07:11)
[2019-01-30] MEDS ORDERED: LIDOCAINE MPF 1% 5 ML VIAL ONE (07:11)
[2019-01-30] MEDS ORDERED: PROPOFOL EMUL(*) 10MG/ML 20 ML 20 ML ONE (07:11)
[2019-01-30] MEDS ORDERED: ONDANSETRON 4 MG/2 ML VIAL ONE (07:11)
[2019-01-30] MEDS ORDERED: BACITRACIN OINT 15 GM TUBE TP ONE (07:14)
[2019-01-30] MEDS ORDERED: PHENYLEPHRINE 10 MG/1 ML VIAL ONE (07:15)
[2019-01-30 07:28] LABS: PLATELET COUNT, AUTOMATED 602 K/uL (150-450)
[2019-01-30] MEDS ORDERED: KETAMINE HCL 200 MG/20 ML MDV ONE (07:42)
[2019-01-30] MEDS ORDERED: INSULIN HUM REG 100 UN/ML 3 ML VIAL SC ONE (10:10)
[2019-01-30] MEDS ORDERED: ONDANSETRON 4 MG/2 ML VIAL IVP PRN (10:15)
[2019-01-30] MEDS ORDERED: oxyCODONE HCL 5 MG CAP PO PRN (10:15)
[2019-01-30] MEDS ORDERED: FLUSH 10 ML SYR IVP PRN (10:15)
[2019-01-30] MEDS ORDERED: NALOXONE HCL 0.4 MG/ML VIAL IVP PRN (10:15)
--- NOTE | 2019-01-30 10:35 | Post Operative Progress Note ---
Post Operative Progress Note Date: Jan 30, 2019 Time: 10:24 Surgeon: Serena Dictation number: [id number] Anesthesia: LMA and spinal by Dr. Mason Pre-Op Diagnosis: Left foot ischemia, wound breakdown after 3 toe amputations PVD DM Post-Op Diagnosis: POOJA Findings: C/W dx Procedure(s): Left BKA Specimen Removed:(May be N/A): Left foot/ankle Complications: None Fluids: See anesthesia record Estimated Blood Loss: 100mL Date OP Note Dictated: Jan 30, 2019 Time OP Note Dictated: 10:25 JOSAFAT GAYTAN MD Jan 30, 2019 10:35
--- NOTE | 2019-01-30 11:54 | OPERATIVE REPORT 1 ---
EVENT DATE: January 30, 2019 SURGEON: Carlito Lyons MD ANESTHESIOLOGIST: Pelon Singh MD ANESTHESIA: LMA and spinal. PREOPERATIVE DIAGNOSES 1. Left foot ischemia with wound breakdown after three toe amputations a month ago. 2. Peripheral vascular disease. 3. Diabetes. POSTOPERATIVE DIAGNOSES 1. Left foot ischemia with wound breakdown after three toe amputations a month ago. 2. Peripheral vascular disease. 3. Diabetes. PROCEDURE PERFORMED Left below-knee amputation. COMPLICATIONS None. CONDITION Stable. ESTIMATED BLOOD LOSS 100 mL. INDICATIONS This is a 59-year old gentleman who presented initially to me with dry gangrene on three of his toes. He had just previously within the previous week to my initial visit with him had a stent placed in his left lower leg just above the ankle so we gave him time to demarcate but there was really no improvement in the perfusion of his toes. The supply chain systems manager who performed the stenting noted few small vessel disease in the foot with not much improvement and perfusion even after stenting was completed. We ultimately decided to give him a try at toe amputation and that surgery went okay without problems. The first, second and third toes were amputation but when I saw him back in the office and took the sutures out there was essentially no healing and the wound fell apart. I discussed transmetatarsal amputation versus below-knee amputation and after discussing the risks and benefits he elected to proceed with left below-knee amputation. DESCRIPTION OF PROCEDURE The patient was brought into the operating room and placed supine on the operating table. Spinal and then LMA was provided by Dr. Singh without any problems. Patient's left foot and ankle were prepped and draped in sterile fashion. A time-out was completed and then I measured 12 cm distal to the tibial tuberosity for the division of the tibia and then measured 2 cm beyond this for the skin incision. I then made a transverse skin incision going around about a third of the circumference of his calf and then extending distally to create a posterior flap. I dissected through all the soft tissues. Also, prior to making an incision, I used the Esmarch wrap and exsanguinated the leg and inflated the tourniquet. Continuing with the surgery, I divided all of the muscles in the anterior compartment and identified the anterior tibial vessels, which I ligated with a 2-0 silk suture. I then used a periosteal elevator to separate the soft tissues away from the tibia circumferentially and then divided the tibia where I had marked it on the skin with a bone saw and then used the bone saw to trim off the anterior corner of the tibia so that there would not be any rubbing or pressure in the skin. I then cleaned off the fibula and divided this a couple of centimeters proximal from where the tibia had been divided. I then used the amputation knife and divided all of the soft tissues from the posterior portions of the muscles down to create my posterior flap and then came across the distal end of the posterior flap and then removed the foot and ankle and passed it off the field. I then ligated the posterior tibial vessels as well as the peroneal vessels, which were oozing, and then there were a couple of small other bleeders that I controlled. The saphenous vein was also oozing, which I ligated with a 2-0 silk free-tie. I then had the tourniquet deflated and really we had bleeding under pretty good control and there was not really a whole lot more bleeding. I then trimmed down the soleus muscle and preserved the gastrocnemius muscle. He had great muscle mass around the bones so once I had the posterior flap shaped the way I wanted it and the muscle trimmed so that the flap fit nicely over the bones and reapproximated with the muscular fascia circumferentially, I reapproximated the fascia from the anterior portion of the leg to the posterior flap with interrupted 2-0 Vicryl sutures. I then closed the skin initially with interrupted 2-0 Nylon sutures to get the flap to look right and everything to be symmetric without dog ears and once I was happy then I ran a 2-[address] the way around the skin incision. After this was completed, his leg was cleaned and dried and I applied copious amounts of Bacitracin antibiotic ointment to the incision followed by Xeroform and then 4x4 gauze and then wrapped his leg in Kerlix and Shaji wrap and then applied an amputation sock over this. He was then placed in a straight leg splint to keep the knee fully extended and then he was awakened, LMA removed and he was transported to the recovery room in stable condition, having tolerated the procedure without any apparent problems. INDY
[2019-01-30] MEDS: INSULIN HUM LISPRO 100 UN/ML 3 ML VIAL SUBQ PRN ×2 (12:27→17:17)
[2019-01-30] MEDS: NS(*) 0.9% 1000 ML BAG 1,000 ML IV PRN ×2 (12:28→22:28)
[2019-01-30] MEDS: PREGABALIN 25 MG CAP PO SCH ×2 (13:58→20:43)
[2019-01-30] MEDS: MORPHINE 2 MG/ML SYR IVP PRN ×2 (13:58→16:07)
--- NOTE | 2019-01-30 14:05 | NUR ---
Physical Therapy Impression PT/OT co-treat for subjective eval and chart review completed. Pt is s/p L) below knee amputation after several toe amputations with on going wounds. Pt indicates that he resides alone but will have help from family on Sunday when they arrive in town. Pt states that he has 3 steps with rail to descend to his home and all needs are on one level thereafter. Pt does have a tub and will benefit from training regarding equipment available to ensure safety with this skill. Pt would also benefit from further therapy to ensure adequate UE strength to accommodate limited weight bearing and safety both with and without pylon attachment, to ensure incision line does not become compromised. PT/OT available during fitting of rigid brace and compression stockings. [facility] has completed leg length measurements and will have proper pylon attachment available tomorrow to facilitate early ambulation. Physical Therapy Goals 1. Pt to be modified indep to don/doff compression stockings as well as rigid brace and apply pylon for ambulation appropriately. 2. Pt to be modified indep for supine to/from sit and bed mobility 3. Pt to be modified indep with sit to/from stand, with and without pylon 4. Pt to be SBA/CGA for ambulation x 50' with pylon 5. Pt to be SBA/CGA for stand-pivot transfers without pylon Patient's Goals
[2019-01-30] MEDS ORDERED: MAGNESIUM HYDROXIDE* 30ML UDCP PO PRN (16:15)
[2019-01-30] MEDS: AMOX/CLAV 875 MG TAB PO SCH (17:18)
[2019-01-30] MEDS: metFORMIN HCL 500 MG TAB PO SCH (17:31)
--- NOTE | 2019-01-30 17:56 | Hospitalist Consultation ---
History of Present Illness Requesting Physician Dr. Cote Reason for Consult Diabetes History of Present Illness This patient was admitted for below knee amputation. He has an insulin pump to manage his diabetes. History Problems: (1) Hypertension Onset Date: 02/19/2014 Status: Acute (2) CAD (coronary artery disease) Onset Date: 04/07/2014 Status: Chronic (3) Type II diabetes mellitus Status: Chronic Home Meds Active Scripts Amoxicillin/Potassium Clav (AMOX TR-K CLV 875-125 MG TAB) 1 Each Tablet, 1 TAB PO Q12H, #30 TAB 0 Refills Prov:JOSAFAT GAYTAN MD 01/20/19 Tramadol Hcl (TRAMADOL HCL) 50 Mg Tablet, 501 TAB PO QID PRN for PAIN, #40 TAB 0 Refills Prov:JOSAFAT GAYTAN MD 01/20/19 Metformin Hcl (METFORMIN HCL) 500 Mg Tablet, 2 TAB PO BIDBS, #360 TAB 3 Refills Prov:WILLOW PINA APRN-C 01/16/19 Insulin Aspart (NOVOLOG) 100 Unit/Ml Soln, 130 UNIT ASDIRECTED DAILY, #15 VIAL 2 Refills Administer as directed per insulin pump Prov:WILLOW PINA APRNP-C 11/08/18 Amlodipine Besylate (AMLODIPINE BESYLATE) 10 Mg Tablet, 1 TAB PO QDAY, #90 TAB 1 Refill Prov:WILLOW PINA APRNP-C 09/23/18 Blood Sugar Diagnostic (CONTOUR NEXT) 1 Each Strip, 100 EA MC TID, #100 STRIP 5 Refills Prov:WILLOW PINA APRNP-C 05/31/18 Carvedilol (CARVEDILOL) 25 Mg Tablet, 1 TAB PO BID, #180 TAB PRN Refills Prov:WILLOW PINA APRN EXTRA HAND-C 12/06/17 Losartan Potassium (LOSARTAN POTASSIUM) 100 Mg Tablet, 1 TAB PO QDAY, #90 TAB 3 Refills Prov:WILLOW PINA APRN EXTRA HAND-C 11/09/17 Reported Medications Clopidogrel Bisulfate (PLAVIX) 75 Mg Tablet, 1 TAB PO QDAY, TAB 12/24/18 Atorvastatin Calcium (ATORVASTATIN CALCIUM) 40 Mg Tablet, 1 TAB PO DAILY, #90 11/01/15 Discontinued Reported Medications Aspirin (ASPIRIN) 81 Mg Tab.chew, 81 MG PO QDAY, TAB.CHEW 12/24/18 Metformin Hcl (METFORMIN HCL) 500 Mg Tablet, 2 TAB PO QAM, TAB 12/24/18 Allergies: Coded Allergies: No Known Allergies (Verified Allergy, Mild, 04/16/18) Patient History: FH: CAD (coronary artery disease) MOTHER FH: HTN (hypertension) MOTHER Unknown FATHER (MEDICAL HX UNKN), , Age:74 Hx Smoking: No Smoking Status: Never Smoker Exposure to Second Hand Smoke?: Yes (SOMETIMES) Caffeine Intake: Coffee, Tea, Soda Caffeine/Cups Per Day: 10 Hx Alcohol Use: Yes Alcohol Used: Beer, Liquor Hx Substance Use Disorder: No Social Drug Use: Never History of IV Drug Use: No Review of Systems All Systems Reviewed/Normal: Yes Exam Vital Signs Vital Signs Date Time Temp Pulse Resp B/P (MAP) Pulse Ox O2 Delivery O2 Flow Rate FiO2 01/30/19 16:00 89 155/76 (102) 92 Nasal Cannula 1.0 01/30/19 15:30 97.8 01/30/19 11:23 16 Neuro: No Gross deficits Eyes: PERRLA Cardiovascular: Regular Rate and Rhythm Respiratory: Clear to Auscultation GI: Abd Soft and Non-Tender Medical Decision Making Data Points Result Diagram: 01/30/1971301/30/19713 Assessment and Plan Problems: (1) Type II diabetes mellitus Status: Chronic Assessment & Plan: He has an insulin pump. We will allow him to use his pump as per his usual regime. (2) Hypertension Onset Date: 02/19/2014 Status: Acute Assessment & Plan: He is on chronic treatment with amlodipine, carvedilol, and losartan. (3) CAD (coronary artery disease) Onset Date: 04/07/2014 Status: Chronic Assessment & Plan: Resume Plavix when cleared by surgery. Venous Thromboembolism Antithrombotics Is Pt On Any Antithrombotics?: No Exam Sepsis Risk: No Definite Risk JOSAFAT ROSAS DO Jan 30, 2019 17:56
[2019-01-30] MEDS: CARVEDILOL 25 MG TABLET PO SCH (20:43)
[2019-01-30] MEDS: DOCUSATE SODIUM 100 MG CAP PO SCH (20:43)
[2019-01-30] MEDS: oxyCODONE HCL 5 MG CAP PO PRN (22:28)
[2019-01-31] MEDS: oxyCODONE HCL 5 MG CAP PO PRN ×4 (05:54→20:43)
[2019-01-31 05:56] VITALS: BP 174/77
[2019-01-31 06:50] LABS: PLATELET COUNT, AUTOMATED 552 K/uL (150-450)
[2019-01-31 07:17] VITALS: BP 167/79
--- NOTE | 2019-01-31 07:21 | General Surgery Progress Note ---
Subjective Progress Notes Subjective No complaints this morning. Pain control seems to be OK. Physical Exam Vital Signs Date Time Temp Pulse Resp B/P (MAP) Pulse Ox O2 Delivery O2 Flow Rate FiO2 01/31/19 05:56 98.4 80 16 174/77 (109) 95 Nasal Cannula 1.0 Intake and Output 01/31/19 07:03 Intake Total 3181 ml Output Total 4250 ml Balance -1069 ml Intake Oral 1456 ml IV Total 1725 ml Output Urine Total 4250 ml # Voids 0 General Appearance: Alert, Awake, No Acute Distress, Afebrile Extremities: Warm, Perfused, Other (Left BKA dressing in place and intact, knee immobilizer in place) Result Diagram: 01/30/19 0714 01/31/19 0544 Assessment and Plan Problems: (1) History of left below knee amputation Status: Acute Assessment & Plan: 01/31/19: POD#1 s/p left BKA for PVD with foot gangrene. Doing well this morning. Will start mobilizing him today. Keep dressing in place, will remove this tomorrow. Keep knee in immobilizer (clam shell brace when available) to prevent flexure contractures. PPI, lovenox. Improve blood sugar control. Pt controlling his insulin pump and will make adjustments to get blood glucose consistently less than 150. (2) DM (diabetes mellitus) Onset Date: 02/19/2014 Status: Acute Assessment & Plan: Will tweak insulin to keep BS less than 150. (3) CAD (coronary artery disease) Onset Date: 04/07/2014 Status: Chronic Assessment & Plan: Continue beta blockade and other chronic cardiovascular medications. Condition Stable. Time Spent: < 30 min Exam Sepsis Risk: No Definite Risk Problem Qualifiers (1) DM (diabetes mellitus): Diabetes mellitus type: type 2 Diabetes mellitus technician terminal and repeater insulin use: without technician terminal and repeater use Diabetes mellitus complication status: with circulatory complication Diabetes mellitus complication detail: with peripheral angiopathy with gangrene Qualified Codes: E11.52 - Type 2 diabetes mellitus with diabetic peripheral angiopathy with gangrene (2) CAD (coronary artery disease): Coronary Disease-Associated Artery/Lesion type: [place] artery [place] vs. transplanted heart: [place] heart Associated angina: without angina Qualified Codes: I25.10 - Atherosclerotic heart disease of [place] coronary artery without angina pectoris JOSAFAT GAYTAN MD Jan 31, 2019 07:21
[2019-01-31] MEDS: DOCUSATE SODIUM 100 MG CAP PO SCH ×2 (08:36→20:43)
[2019-01-31] MEDS: amLODIPine BESYL(*) 5 MG TAB PO SCH (08:36)
[2019-01-31] MEDS: PANTOPRAZOLE SOD 40 MG TABEC PO SCH (08:36)
[2019-01-31] MEDS: PREGABALIN 25 MG CAP PO SCH ×3 (08:36→20:43)
[2019-01-31] MEDS: AMOX/CLAV 875 MG TAB PO SCH ×2 (08:36→16:15)
[2019-01-31] MEDS: metFORMIN HCL 500 MG TAB PO SCH ×2 (08:36→16:15)
[2019-01-31] MEDS: ATORVASTATIN 40 MG TAB PO SCH (08:36)
[2019-01-31] MEDS: CARVEDILOL 25 MG TABLET PO SCH ×2 (08:37→20:44)
[2019-01-31] MEDS: POLYETHYLENE GLYCOL 17 GM PKT PO SCH (08:37)
[2019-01-31] MEDS ORDERED: LOSARTAN POTASSIUM 50 MG TAB PO SCH (09:00)
[2019-01-31 10:22] VITALS: BP 164/84
--- NOTE | 2019-01-31 11:08 | Medical Nutrition Therapy ---
Nutrition Anthropometrics Height (Inches): 71.00 Height (Calculated Centimeters: 180.573521 Weight (Pounds): 166 Weight (Calculated Kilograms): 75.296 Laci Nutrition Score: Adequate Laci Nutrition Risk Score: 15 Dietary Referral Nutrition Risk Factors: Unplanned Loss >10lbs, Special Diet Nutrition Risk Comment: diabetic diet Physical Findings Physical Appearance: 24.5kg/m2-adjusted due to BKA Skin Appearance Skin Appearance: Edema Edema Location Modifier: Left Edema Location: thigh Type of Edema: Degree of Edema: 1+ Gastrointestinal Symptoms GI Symtoms: Tube Present: Bowel Sounds: Recent Bowel Pattern: Stool Characteristics: Nutritional Diagnosis Nutritional Risk Acuity 2: Blood Glucose > 300mg/dl Nutritional Risk Acuity 4: Modified Diet Past Medical History: HTN, CAD, T2DM Nutritional Acuity: 2-Moderate Nutrition Diagnosis: Inappropriate Carb Intake Nutrition Etiology: Physiological Causes Nutrition Problem/Etiology/Sym: Inappropriate carb intake as related to physiological causes as evidenced by whole blood glucose of 291-447, T2DM dx, and BKA. Energy Requirement: 2088 (m st jeor x 1.1 x12) Protein Requirement: 75 (1 g protein/kg; elevated due to recent surgery) Fluid Requirement: 2088 (1mL/1kcal) Diet Type: Diabetic Nutrition Intervention: Cont diet as ordered, Encourage intake, Check glucose Nutritional Education Nutrition Counseling: Pt refused diabetes diet education. Nutrition Monitoring & Eval Nutrition Goals: Eat 50-100% Meal Nutritional Goals Comment: Currently consuming 80-100% of meals. Nutrition Follow-Up: Good Intake RD Patient Assessment Time: [address] Assessment Type: RD Assessment Patient Nutrition Acuity: 2-Moderate Follow Up Date: Feb 03, 2019 Nutritional Comment: Pt admitted for BKA. Hx of HTN, CAD, and T2DM. Pt does use an insulin pump to manage diabetes. Pt currently on the ADA diet with 80-100% intake at meals. Pt is receiving enoxaparin, insulin, and metformin-B12 assessment may be indicated as B12 deficiency is a common side effect. Whole blood glucose has ranged from 291-447. Random glucose was 235. Na of 131 is decreased, as is RBC of 3.60, Hgb of 11.1, and Hct of 32.5. Pt is experiencing 1+ pitting edema in the left thigh. Monitor for improvement in blood glucose levels and for adequate intakes. Pt refused diabetes diet educations -KAROLINA SLAUGHTER Jan 31, 2019 09:01
--- NOTE | 2019-01-31 11:25 | Hospitalist Progress Note ---
Subjective Progress Notes Subjective He was admitted s/p BKA. He had no acute events overnight. Patient Complains of: Cardiovascular: No: Chest Pain Respiratory: No: Shortness of Breath Physical Exam Vital Signs Date Time Temp Pulse Resp B/P (MAP) Pulse Ox O2 Delivery O2 Flow Rate FiO2 01/31/19 10:22 98.9 85 20 164/84 (110) 92 Nasal Cannula 1.0 Intake and Output 01/31/19 01:03 Intake Total 2701 ml Output Total 2725 ml Balance -24 ml Intake Oral 976 ml IV Total 1725 ml Output Urine Total 2725 ml # Voids 0 General Appearance: Alert, Awake, No Acute Distress, Afebrile Neuro: No Gross deficits Cardiovascular: Regular Rate and Rhythm Respiratory: No Respiratory Distress, Clear to Auscultation GI: Soft and Non-Tender Psych: Alert & Oriented X3, Appropriate Mood & Affect Result Diagram: 01/31/19 0544 01/31/19 0544 Assessment and Plan Problems: (1) Type II diabetes mellitus Status: Chronic Assessment & Plan: He has an insulin pump. We will allow him to use his pump as per his usual regime. (2) Hypertension Onset Date: 02/19/2014 Status: Acute Assessment & Plan: He is on chronic treatment with amlodipine, carvedilol, and losartan. (3) CAD (coronary artery disease) Onset Date: 04/07/2014 Status: Chronic Assessment & Plan: Resume Plavix when cleared by surgery. Exam Sepsis Risk: No Definite Risk Problem Qualifiers (1) Hypertension: Hypertension type: essential hypertension Qualified Codes: I10 - Essential (primary) hypertension (2) CAD (coronary artery disease): Coronary Disease-Associated Artery/Lesion type: [place] artery [place] vs. transplanted heart: [place] heart Associated angina: without angina Qualified Codes: I25.10 - Atherosclerotic heart disease of [place] coronary artery without angina pectoris TAMAR DUGGAN Jan 31, 2019 11:24
[2019-01-31] MEDS: MORPHINE 2 MG/ML SYR IVP PRN ×2 (12:34→14:33)
--- NOTE | 2019-01-31 12:59 | NUR ---
Occupational Therapy Impression Pt alert and agreeable to OT tx. Thermodynamicist present from [employer] to provide rigid bracing system and fit appropriately. SBA supine to sit with HOB raised. Rigid brace adjusted. CGA ambulation x10ft with RW. Declined need for toileting at this time. OT demonstrating tub transfer with shower chair. Pt plans to obtain RW and shower chair. Recommendation pending progress, likely d/c home with assist from family/friends. HH if desired. Occupational Therapy Goals 1) Pt will be educated on appropriate AE needs. 2) Pt will be SBA bathtub transfer. 3) Pt will be SBA UB/LB dressing. 4) Pt will be SBA toilet task. Patient's Goal
--- NOTE | 2019-01-31 13:11 | NUR ---
Physical Therapy Impression Pt up in w/c with L) limb completely supported and clamshell in place. Pt agreeable to short distance ambulation back to bed. PT donned pylon leg as instructed by prosthetic with clamshell suspension brace in place. PT cues for hand placement for STS transfer with RW. Pt completed transfer and ambulation x8' with RW and cues to off load through UEs. Pt reports improvement in overall pain once back in bed with extremity elevated. Plan to continue with gait progression. Physical Therapy Goals 1. Pt to be modified indep to don/doff compression stockings as well as rigid brace and apply pylon for ambulation appropriately. 2. Pt to be modified indep for supine to/from sit and bed mobility 3. Pt to be modified indep with sit to/from stand, with and without pylon 4. Pt to be SBA/CGA for ambulation x 50' with pylon 5. Pt to be SBA/CGA for stand-pivot transfers without pylon Patient's Goals
[2019-01-31 16:44] VITALS: BP 140/76
[2019-01-31 20:35] VITALS: BP 153/81
[2019-02-01 03:49] VITALS: BP 156/78
[2019-02-01] MEDS: oxyCODONE HCL 5 MG CAP PO PRN ×4 (03:55→21:11)
[2019-02-01 06:32] LABS: PLATELET COUNT, AUTOMATED 548 K/uL (150-450)
[2019-02-01 06:50] VITALS: BP 144/78
[2019-02-01] MEDS: AMOX/CLAV 875 MG TAB PO SCH ×2 (08:23→17:12)
[2019-02-01] MEDS: CARVEDILOL 25 MG TABLET PO SCH ×2 (08:24→21:11)
[2019-02-01] MEDS: amLODIPine BESYL(*) 5 MG TAB PO SCH (08:24)
[2019-02-01] MEDS: metFORMIN HCL 500 MG TAB PO SCH ×2 (08:24→17:12)
[2019-02-01] MEDS: DOCUSATE SODIUM 100 MG CAP PO SCH ×2 (08:24→21:00)
[2019-02-01] MEDS: PREGABALIN 25 MG CAP PO SCH ×3 (08:24→21:11)
[2019-02-01] MEDS: PANTOPRAZOLE SOD 40 MG TABEC PO SCH (08:24)
[2019-02-01] MEDS: POLYETHYLENE GLYCOL 17 GM PKT PO SCH (08:25)
[2019-02-01] MEDS: ENOXAPARIN 40 MG/0.4ML SYR SC SCH (08:25)
[2019-02-01] MEDS: ATORVASTATIN 40 MG TAB PO SCH (08:25)
--- NOTE | 2019-02-01 08:43 | General Surgery Progress Note ---
Subjective Progress Notes Subjective ambulated with prosthetic yesterday. geraldine po. pain controlled. Physical Exam Vital Signs Date Time Temp Pulse Resp B/P (MAP) Pulse Ox O2 Delivery O2 Flow Rate FiO2 02/01/19 08:07 85 Room Air 02/01/19 08:07 0.7 02/01/19 06:50 99.8 78 16 144/78 (100) Intake and Output 02/01/19 07:03 Intake Total 1954 ml Output Total 3635 ml Balance -1681 ml Intake Oral 1954 ml Output Urine Total 3635 ml # Voids 1 # Bowel Movements 3 General Appearance: No Acute Distress Cardiovascular: Other (reg rate) Extremities: Other (left stump dressed and in immobilizer) Result Diagram: 02/01/1960502/01/19605 Assessment and Plan Problems: (1) History of left below knee amputation Status: Acute Assessment & Plan: 01/31/19: POD#1 s/p left BKA for PVD with foot gangrene. Doing well this morning. Will start mobilizing him today. Keep dressing in place, will remove this tomorrow. Keep knee in immobilizer (clam shell brace when available) to prevent flexure contractures. PPI, lovenox. Improve blood sugar control. Pt controlling his insulin pump and will make adjustments to get blood glucose consistently less than 150. 02/01/19: doing well. will look at inc tomorrow. diet as geraldine. PT. pain control. blood sugar control. (2) DM (diabetes mellitus) Onset Date: 02/19/2014 Status: Acute Assessment & Plan: Will tweak insulin to keep BS less than 150. (3) CAD (coronary artery disease) Onset Date: 04/07/2014 Status: Chronic Assessment & Plan: Continue beta blockade and other chronic cardiovascular medications. Exam Sepsis Risk: No Definite Risk Problem Qualifiers (1) DM (diabetes mellitus): Diabetes mellitus type: type 2 Diabetes mellitus snf insulin use: without snf use Diabetes mellitus complication status: with circulatory complication Diabetes mellitus complication detail: with peripheral angiopathy with gangrene Qualified Codes: E11.52 - Type 2 diabetes mellitus with diabetic peripheral angiopathy with gangrene (2) CAD (coronary artery disease): Coronary Disease-Associated Artery/Lesion type: [place] artery [place] vs. transplanted heart: [place] heart Associated angina: without angina Qualified Codes: I25.10 - Atherosclerotic heart disease of [place] coronary artery without angina pectoris JILLIAN REYNOSO Feb 01, 2019 08:43
--- NOTE | 2019-02-01 09:11 | NUR ---
Physical Therapy Impression PT provided education and demonstration for donning/doffing clamshell finish remover as well as pylon foot extension-- pt will requiring one person assist at home for attaching foot. Priscila to prevent torque on L) limb for bed mobility. CGA for transfers with cues for hand placement with RW. Ambulation x25' with hopping gait pattern, no pylon on L) limb. Ambulation x15' with pylon in place and CGA. Cues to effecticely weightbear with pylon in place. Pt educated on importance of near 24hr use of clamshell to prevent flexion contracture and to protect limb-- he verbalized understanding. Pt cleared to complete pivot transfers and complete short distance hopping ambulation with nursing staff. RN informed that L) LE must be supported when sitting. Plan to address stairs with future visits. Rec [facility] PT. Physical Therapy Goals 1. Pt to be modified indep to don/doff compression stockings as well as rigid brace and apply pylon for ambulation appropriately. 2. Pt to be modified indep for supine to/from sit and bed mobility 3. Pt to be modified indep with sit to/from stand, with and without pylon 4. Pt to be SBA/CGA for ambulation x 50' with pylon 5. Pt to be SBA/CGA for stand-pivot transfers without pylon Patient's Goals
--- NOTE | 2019-02-01 10:10 | Hospitalist Progress Note ---
Subjective Progress Notes Subjective He was admitted s/p BKA. His glucose overnight dropped into the 60's, and are elevated into the 300's this morning. Patient Complains of: Cardiovascular: No: Chest Pain Respiratory: No: Shortness of Breath Physical Exam Vital Signs Date Time Temp Pulse Resp B/P (MAP) Pulse Ox O2 Delivery O2 Flow Rate FiO2 02/01/19 08:07 85 Room Air 02/01/19 08:07 0.7 02/01/19 06:50 99.8 78 16 144/78 (100) Intake and Output 02/01/19 07:03 Intake Total 1954 ml Output Total 3635 ml Balance -1681 ml Intake Oral 1954 ml Output Urine Total 3635 ml # Voids 1 # Bowel Movements 3 General Appearance: Alert, Awake, No Acute Distress, Afebrile Neuro: No Gross deficits Cardiovascular: Regular Rate and Rhythm Respiratory: No Respiratory Distress, Clear to Auscultation Psych: Alert & Oriented X3, Appropriate Mood & Affect Result Diagram: 02/01/19 0606 02/01/19 0840 Assessment and Plan Problems: (1) Type II diabetes mellitus Status: Chronic Assessment & Plan: He has an insulin pump. We tried to allow him to use his pump as per his usual regime, but had wandering glucoses ranging from 60-390. At this time, we will stop his insulin pump use. We will try to use sliding scale insulin with Lantus. Will adjust insulin as needed per glucose levels. (2) Hypertension Onset Date: 02/19/2014 Status: Acute Assessment & Plan: He is on chronic treatment with amlodipine, carvedilol, and losartan. (3) CAD (coronary artery disease) Onset Date: 04/07/2014 Status: Chronic Assessment & Plan: Resume Plavix when cleared by surgery. Exam Sepsis Risk: No Definite Risk Problem Qualifiers (1) Hypertension: Hypertension type: essential hypertension Qualified Codes: I10 - Essential (primary) hypertension (2) CAD (coronary artery disease): Coronary Disease-Associated Artery/Lesion type: [place] artery [place] vs. transplanted heart: [place] heart Associated angina: without angina Qualified Codes: I25.10 - Atherosclerotic heart disease of [place] coronary artery without angina pectoris TAMAR DUGGANP Feb 01, 2019 10:10
[2019-02-01] MEDS: INSULIN HUM LISPRO 100 UN/ML 3 ML VIAL SUBQ PRN ×3 (12:05→21:10)
[2019-02-01 16:15] VITALS: BP 156/77
[2019-02-01] MEDS: ACETAMINOPHEN 325 MG TAB PO PRN (19:33)
[2019-02-01 20:07] VITALS: BP 160/83
[2019-02-01] MEDS ORDERED: INSULIN GLARGINE 100 U/ML 3 ML PEN SUBQ SCH (21:00)
[2019-02-01 23:57] VITALS: BP 14/79
[2019-02-02 03:06] VITALS: BP 164/83
[2019-02-02 07:13] VITALS: BP 169/76
[2019-02-02] MEDS: AMOX/CLAV 875 MG TAB PO SCH ×2 (08:01→17:10)
[2019-02-02] MEDS: oxyCODONE HCL 5 MG CAP PO PRN ×3 (08:02→18:09)
[2019-02-02] MEDS: metFORMIN HCL 500 MG TAB PO SCH ×2 (08:02→17:10)
[2019-02-02] MEDS: INSULIN HUM LISPRO 100 UN/ML 3 ML VIAL SUBQ PRN ×3 (08:03→20:44)
--- NOTE | 2019-02-02 08:30 | Antimicrobial Stewardship ---
Antimicrobial Time Out Antimicrobial Stewardship MD Service: Other (Surgeon) Indications: Other (Post-op below the knee amputation) Antimicrobial Used Unasyn times 1 pre-op and Augmentin post-op. Start Date: Jan 30, 2019 Culture Results: N/A RONALDO BIGGS Feb 02, 2019 08:30
[2019-02-02] MEDS ORDERED: INSULIN HUM LISPRO 100 UN/ML 3 ML VIAL SUBQ PRN (08:35)
[2019-02-02] MEDS: POLYETHYLENE GLYCOL 17 GM PKT PO SCH (09:00)
[2019-02-02] MEDS ORDERED: INSULIN GLARGINE 100 U/ML 3 ML PEN SUBQ SCH ×2 (09:00)
[2019-02-02] MEDS ORDERED: CLOPIDOGREL BISULFATE 75MG TAB PO SCH (09:00)
[2019-02-02] MEDS: ENOXAPARIN 40 MG/0.4ML SYR SC SCH (09:13)
[2019-02-02] MEDS: amLODIPine BESYL(*) 5 MG TAB PO SCH (09:14)
[2019-02-02] MEDS: CARVEDILOL 25 MG TABLET PO SCH ×2 (09:14→20:41)
[2019-02-02] MEDS: ATORVASTATIN 40 MG TAB PO SCH (09:14)
[2019-02-02] MEDS: PANTOPRAZOLE SOD 40 MG TABEC PO SCH (09:14)
[2019-02-02] MEDS: DOCUSATE SODIUM 100 MG CAP PO SCH ×2 (09:14→20:45)
[2019-02-02] MEDS: PREGABALIN 25 MG CAP PO SCH ×3 (09:14→20:41)
--- NOTE | 2019-02-02 09:35 | Hospitalist Progress Note ---
Subjective Progress Notes Subjective He was admitted s/p BKA. He had no acute events overnight. We continue to obtain better control of his blood glucose levels. Patient Complains of: Cardiovascular: No: Chest Pain Respiratory: No: Shortness of Breath Physical Exam Vital Signs Date Time Temp Pulse Resp B/P (MAP) Pulse Ox O2 Delivery O2 Flow Rate FiO2 02/02/19 07:15 91 Room Air 02/02/19 07:13 98.4 75 20 169/76 (107) 02/02/19 03:06 1.0 Intake and Output 02/02/19 07:03 Intake Total 1870 ml Output Total 3350 ml Balance -1480 ml Intake Oral 1870 ml Output Urine Total 3350 ml # Voids 2 # Bowel Movements 3 General Appearance: Alert, Awake, No Acute Distress, Afebrile Neuro: No Gross deficits Cardiovascular: Regular Rate and Rhythm Respiratory: No Respiratory Distress, Clear to Auscultation Psych: Alert & Oriented X3, Appropriate Mood & Affect Result Diagram: 02/01/19 0606 02/01/19 0840 Assessment and Plan Problems: (1) Type II diabetes mellitus Status: Chronic Assessment & Plan: He has an insulin pump. We tried to allow him to use his pump as per his usual regime, but had wandering glucoses ranging from 60-390. At this time, we will stop his insulin pump use. We will try to use sliding scale insulin with Lantus. Will adjust insulin as needed per glucose levels. He has re fused diabetic teaching. He reports he does not follow a diabetic diet at home. Will likely have a hard time controlling glucoses in the [facility]. (2) Hypertension Onset Date: 02/19/2014 Status: Acute Assessment & Plan: He is on chronic treatment with amlodipine, carvedilol, and losartan. (3) CAD (coronary artery disease) Onset Date: 04/07/2014 Status: Chronic Assessment & Plan: Resume Plavix 02/02. Ok per Dr. Benavides. Exam Sepsis Risk: No Definite Risk Problem Qualifiers (1) Hypertension: Hypertension type: essential hypertension Qualified Codes: I10 - Essential (primary) hypertension (2) CAD (coronary artery disease): Coronary Disease-Associated Artery/Lesion type: [place] artery [place] vs. transplanted heart: [place] heart Associated angina: without angina Qualified Codes: I25.10 - Atherosclerotic heart disease of [place] coronary artery without angina pectoris TAMAR DUGGAN SWITCHBOARD OPERATOR HELPER Feb 02, 2019 09:35
--- NOTE | 2019-02-02 10:06 | General Surgery Progress Note ---
Subjective Progress Notes Subjective no acute events. pain controlled. geraldine po. Physical Exam Vital Signs Date Time Temp Pulse Resp B/P (MAP) Pulse Ox O2 Delivery O2 Flow Rate FiO2 02/02/19 07:15 91 Room Air 02/02/19 07:13 98.4 75 20 169/76 (107) 02/02/19 03:06 1.0 Intake and Output 02/02/19 07:03 Intake Total 1870 ml Output Total 3350 ml Balance -1480 ml Intake Oral 1870 ml Output Urine Total 3350 ml # Voids 2 # Bowel Movements 3 General Appearance: No Acute Distress Cardiovascular: Other (reg rate) Extremities: Other (left stump. inc c/d/i. no infectio. no hematoma. ) Result Diagram: 02/01/19 0606 02/01/19 0840 Assessment and Plan Problems: (1) History of left below knee amputation Status: Acute Assessment & Plan: 01/31/19: POD#1 s/p left BKA for PVD with foot gangrene. Doing well this morning. Will start mobilizing him today. Keep dressing in place, will remove this tomorrow. Keep knee in immobilizer (clam shell brace when available) to prevent flexure contractures. PPI, lovenox. Improve blood sugar control. Pt controlling his insulin pump and will make adjustments to get blood glucose consistently less than 150. 02/01/19: doing well. will look at inc tomorrow. diet as geraldine. PT. pain control. blood sugar control. 02/02/19: stump healing well. cont dressing changes. PT. ok to restart plavix. (2) DM (diabetes mellitus) Onset Date: 02/19/2014 Status: Acute Assessment & Plan: Will tweak insulin to keep BS less than 150. (3) CAD (coronary artery disease) Onset Date: 04/07/2014 Status: Chronic Assessment & Plan: Continue beta blockade and other chronic cardiovascular medications. Exam Sepsis Risk: No Definite Risk Problem Qualifiers (1) DM (diabetes mellitus): Diabetes mellitus type: type 2 Diabetes mellitus terminal carman insulin use: without terminal carman use Diabetes mellitus complication status: with circulatory complication Diabetes mellitus complication detail: with peripheral angiopathy with gangrene Qualified Codes: E11.52 - Type 2 diabetes mellitus with diabetic peripheral angiopathy with gangrene (2) CAD (coronary artery disease): Coronary Disease-Associated Artery/Lesion type: [place] artery [place] vs. transplanted heart: [place] heart Associated angina: without angina Qualified Codes: I25.10 - Atherosclerotic heart disease of [place] coronary artery without angina pectoris JILLIAN REYNOSO Feb 02, 2019 10:06
[2019-02-02] MEDS: LOSARTAN POTASSIUM 50 MG TAB PO SCH (10:19)
[2019-02-02 12:02] VITALS: BP 146/88
--- NOTE | 2019-02-02 14:20 | NUR ---
Physical Therapy Impression Pt progressing well with functional mobility. Priscila for bed mobility, assist only required to support L) limb while getting out of bed. SBA for transfers with RW, with and without pylon. Ambulation 2x10, with and without pylon. Pt requires minimal assistance to reuben/doff pylon and clamshell and is able to instruct a caregiver. PT instruction and demonstration to asc/desc 4 stiars with crutch and railing, pt completed without pylon and CGA -- good safety throughout. Pt safe to d/c home from a mobility standpoint when medically appropriate. Strongly rec [facility] PT Physical Therapy Goals 1. Pt to be modified indep to don/doff compression stockings as well as rigid brace and apply pylon for ambulation appropriately. 2. Pt to be modified indep for supine to/from sit and bed mobility 3. Pt to be modified indep with sit to/from stand, with and without pylon 4. Pt to be SBA/CGA for ambulation x 50' with pylon 5. Pt to be SBA/CGA for stand-pivot transfers without pylon Patient's Goals
[2019-02-02 15:30] VITALS: BP 116/9
[2019-02-02 19:52] VITALS: BP 152/80
[2019-02-02] MEDS: ACETAMINOPHEN 325 MG TAB PO PRN (20:41)
[2019-02-02] MEDS: INSULIN GLARGINE 100 U/ML 3 ML PEN SUBQ SCH (20:45)
[2019-02-02 23:46] VITALS: BP 148/86
[2019-02-03 03:05] VITALS: BP 126/72
[2019-02-03] MEDS: oxyCODONE HCL 5 MG CAP PO PRN ×3 (03:07→13:49)
[2019-02-03 05:59] LABS: PLATELET COUNT, AUTOMATED 559 K/uL (150-450)
[2019-02-03 07:23] VITALS: BP 139/77
[2019-02-03] MEDS ORDERED: PREG25 PO (08:01)
[2019-02-03] MEDS ORDERED: DOCU-202 PO (08:01)
[2019-02-03] MEDS ORDERED: OXYC5TAB38 PO (08:01)
--- NOTE | 2019-02-03 08:10 | Short(Outpt) Discharge Summary ---
Discharge Summary Reason for Hosp/Final Diag: (1) History of left below knee amputation Status: Acute Hospital Course & Plan: 01/31/19: POD#1 s/p left BKA for PVD with foot gangrene. Doing well this morning. Will start mobilizing him today. Keep dressing in place, will remove this tomorrow. Keep knee in immobilizer (clam shell brace when available) to prevent flexure contractures. PPI, lovenox. Improve blood sugar control. Pt controlling his insulin pump and will make adjustments to get blood glucose consistently less than 150. 02/01/19: doing well. will look at inc tomorrow. diet as geraldine. PT. pain control. blood sugar control. 02/02/19: stump healing well. cont dressing changes. PT. ok to restart plavix. 02/03/19: POD#4. Doing well. Incision/stump look great. Well perfused. Minimal serous drainage. No erythema. Pt doing well in terms of mobility. Getting up and around on rigid pylon, walker, and crutches. Will d/c to home today with home health RN and PT. No need to continue plavix since it was started for vascular stents in his distal lower leg which are no longer present as they were in the amputated leg. F/U with me next week to check stump and remove sutures. (2) DM (diabetes mellitus) Onset Date: 02/19/2014 Status: Acute Hospital Course & Plan: Will tweak insulin to keep BS less than 150. (3) CAD (coronary artery disease) Onset Date: 04/07/2014 Status: Chronic Hospital Course & Plan: Continue beta blockade and other chronic cardiovascular medications. Departure Discharge to: Home, Home Health Discharge Instructions Home Meds Active Scripts Pregabalin (LYRICA) 25 Mg Cap, 1 TAB PO BID, #30 CAP 0 Refills Take until gone then stop; no refills needed. Prov:JOSAFAT GAYTAN MD 02/03/19 Oxycodone Hcl (OXYCODONE HCL) 5 Mg Tablet, 1-2 TAB PO Q4H PRN for PAIN, #30 TAB 0 Refills Prov:JOSAFAT GAYTAN MD 02/03/19 Docusate Sodium (DOCUSATE SODIUM) 100 Mg Capsule, 1 CAP PO BID, #30 CAPSULE 0 Refills Prov:JOSAFAT GAYTAN MD 02/03/19 Amoxicillin/Potassium Clav (AMOX TR-K CLV 875-125 MG TAB) 1 Each Tablet, 1 TAB PO Q12H, #30 TAB 0 Refills Prov:JOSAFAT GAYTAN MD 01/20/19 Tramadol Hcl (TRAMADOL HCL) 50 Mg Tablet, 501 TAB PO QID PRN for PAIN, #40 TAB 0 Refills Prov:JOSAFAT GAYTAN MD 01/20/19 Metformin Hcl (METFORMIN HCL) 500 Mg Tablet, 2 TAB PO BIDBS, #360 TAB 3 Refills Prov:WILLOW PINA APRN CONTROL PANEL ASSEMBLER-C 01/16/19 Insulin Aspart (NOVOLOG) 100 Unit/Ml Soln, 130 UNIT ASDIRECTED DAILY, #15 VIAL 2 Refills Administer as directed per insulin pump Prov:WILLOW PINA APRN CONTROL PANEL ASSEMBLER-C 11/08/18 Amlodipine Besylate (AMLODIPINE BESYLATE) 10 Mg Tablet, 1 TAB PO QDAY, #90 TAB 1 Refill Prov:WILLOW PINA APRN CONTROL PANEL ASSEMBLER-C 09/23/18 Blood Sugar Diagnostic (CONTOUR NEXT) 1 Each Strip, 100 EA MC TID, #100 STRIP 5 Refills Prov:WILLOW PINA APRN CONTROL PANEL ASSEMBLER-C 05/31/18 Carvedilol (CARVEDILOL) 25 Mg Tablet, 1 TAB PO BID, #180 TAB PRN Refills Prov:WILLOW PINA APRN CONTROL PANEL ASSEMBLER-C 12/06/17 Losartan Potassium (LOSARTAN POTASSIUM) 100 Mg Tablet, 1 TAB PO QDAY, #90 TAB 3 Refills Prov:WILLOW PINA APRN CONTROL PANEL ASSEMBLER-C 11/09/17 Reported Medications Clopidogrel Bisulfate (PLAVIX) 75 Mg Tablet, 1 TAB PO QDAY, TAB 12/24/18 Atorvastatin Calcium (ATORVASTATIN CALCIUM) 40 Mg Tablet, 1 TAB PO DAILY, #90 11/01/15 Discontinued Reported Medications Aspirin (ASPIRIN) 81 Mg Tab.chew, 81 MG PO QDAY, TAB.CHEW 12/24/18 Metformin Hcl (METFORMIN HCL) 500 Mg Tablet, 2 TAB PO QAM, TAB 12/24/18 Follow up Referrals: General Surgery - 02/12/19 @ Surgery, General with JOSAFAT GAYTAN MD You have a follow up appointment scheduled with Dr. Gaytan on 02/12/19, at 4:30pm. Diet: Diabetic Activity: As Tolerated Special Instructions: You may ambulate as tolerated but don't put any direct pressure on the stump or incision. You may remove all dressings and shower and you can get the incision wet with soap and water but don't scrub the incision, be very gentle with it. Don't immerse the incision for 1 month after surgery. Continue taking the Augmentin twice each day until you run out of pills, then stop. Continue taking pregabalin (Lyrica) twice each day until you run out of pills, then stop. Wear the knee imobilizer/brace at all times other than while bathing to prevent yourself from getting a knee contracture which will prevent you from straightening your knee and will delay your progression to a definitive prosthetic leg. You no longer need to take the Plavix since the blood vessel stents that were placed to improve blood flow to your foot came out with your leg and are no longer present. Take a baby aspirin every day. Continue working with home health nursing and home physical therapy for the next couple of weeks. Problem Qualifiers (1) DM (diabetes mellitus): Diabetes mellitus type: type 2 Diabetes mellitus snf insulin use: without terminal make up operator use Diabetes mellitus complication status: with circulatory complication Diabetes mellitus complication detail: with peripheral angiopathy with gangrene Qualified Codes: E11.52 - Type 2 diabetes mellitus with diabetic peripheral angiopathy with gangrene (2) CAD (coronary artery disease): Coronary Disease-Associated Artery/Lesion type: [place] artery [place] vs. transplanted heart: [place] heart Associated angina: without angina Qualified Codes: I25.10 - Atherosclerotic heart disease of [place] coronary artery without angina pectoris JOSAFAT GAYTAN MD Feb 03, 2019 08:10
[2019-02-03] MEDS: ENOXAPARIN 40 MG/0.4ML SYR SC SCH (08:46)
[2019-02-03] MEDS: PANTOPRAZOLE SOD 40 MG TABEC PO SCH (08:47)
[2019-02-03] MEDS: INSULIN GLARGINE 100 U/ML 3 ML PEN SUBQ SCH (08:47)
[2019-02-03] MEDS: INSULIN HUM LISPRO 100 UN/ML 3 ML VIAL SUBQ PRN ×2 (08:47→12:02)
[2019-02-03] MEDS: LOSARTAN POTASSIUM 50 MG TAB PO SCH (08:48)
[2019-02-03] MEDS: amLODIPine BESYL(*) 5 MG TAB PO SCH (08:48)
[2019-02-03] MEDS: metFORMIN HCL 500 MG TAB PO SCH (08:48)
[2019-02-03] MEDS: CARVEDILOL 25 MG TABLET PO SCH (08:48)
[2019-02-03] MEDS: AMOX/CLAV 875 MG TAB PO SCH (08:48)
[2019-02-03] MEDS: DOCUSATE SODIUM 100 MG CAP PO SCH (08:48)
[2019-02-03] MEDS: ATORVASTATIN 40 MG TAB PO SCH (08:48)
[2019-02-03] MEDS: PREGABALIN 25 MG CAP PO SCH ×2 (08:48→13:49)
[2019-02-03] MEDS: POLYETHYLENE GLYCOL 17 GM PKT PO SCH (08:49)
[2019-02-03] MEDS: ACETAMINOPHEN 325 MG TAB PO PRN (11:12)
--- NOTE | 2019-02-03 11:33 | NUR ---
Physical Therapy Impression Pt declined PT intervention today, preferring to save energy to take shower and transfer into home later today. Pt confident with use of clam shell and pylon. Rec [facility] PT at .. Physical Therapy Goals 1. Pt to be modified indep to don/doff compression stockings as well as rigid brace and apply pylon for ambulation appropriately. 2. Pt to be modified indep for supine to/from sit and bed mobility 3. Pt to be modified indep with sit to/from stand, with and without pylon 4. Pt to be SBA/CGA for ambulation x 50' with pylon 5. Pt to be SBA/CGA for stand-pivot transfers without pylon Patient's Goals
--- NOTE | 2019-02-03 13:04 | Hospitalist Progress Note ---
Subjective Progress Notes Subjective No acute events overnight. His Blood Sugars continue to be elevated. Patient Complains of: Neurological: No: Syncope, Confusion Cardiovascular: No: Chest Pain, Palpitations Respiratory: No: Congestion, Shortness of Breath Gastrointestinal: No Nausea, No Vomiting Physical Exam Vital Signs Date Time Temp Pulse Resp B/P (MAP) Pulse Ox O2 Delivery O2 Flow Rate FiO2 02/03/19 08:00 93 Room Air 02/03/19 07:23 98.0 75 16 139/77 (97) 0.5 Intake and Output 02/03/19 07:03 Intake Total 596 ml Output Total 2050 ml Balance -1454 ml Intake Oral 596 ml Output Urine Total 2050 ml # Voids 2 # Bowel Movements 3 General Appearance: Alert, Awake, No Acute Distress Eyes: PERRLA Cardiovascular: Regular Rate and Rhythm Respiratory: No Respiratory Distress Psych: Alert & Oriented X3, Appropriate Mood & Affect Result Diagram: 02/03/1950902/03/19509 Assessment and Plan Problems: (1) Type II diabetes mellitus Status: Chronic Assessment & Plan: He has an insulin pump. We had begun treating his blood sugars with Lantus and SSI level 3. Surgery is planning to discharge him today. When I spoke with him about management of his diabetes. I spoke with him about continuing with his [place] pump when he discharges, or switching to treatment with Lantus and SSI. He stated he wanted to be put back on his insulin pump and he will follow up with his PCP at his next scheduled appointment on 02/06. I explained the importance of diet control and managing his blood sugars. He did not want any additional education about diabetes. Surgery is aware of his elevated blood sugars. (2) Hypertension Onset Date: 02/19/2014 Status: Acute Assessment & Plan: He is on chronic treatment with amlodipine, carvedilol, and losartan. (3) CAD (coronary artery disease) Onset Date: 04/07/2014 Status: Chronic Assessment & Plan: Resumed Plavix on 02/02 Copies to: WILLOW PINA APRN AUTOMOTIVE SERVICE WRITER-C; JOSAFAT GAYTAN MD ; Exam Sepsis Risk: No Definite Risk Problem Qualifiers (1) Hypertension: Hypertension type: essential hypertension Qualified Codes: I10 - Essential (primary) hypertension (2) CAD (coronary artery disease): Coronary Disease-Associated Artery/Lesion type: [place] artery [place] vs. transplanted heart: [place] heart Associated angina: without angina Qualified Codes: I25.10 - Atherosclerotic heart disease of [place] coronary artery without angina pectoris EFREN BALTAZAR Feb 03, 2019 19:04
== END 2019-02-03 14:05 | disposition home health service (06) | DRG 241 ==
LOC: OR 01:28 → MED 11:19
PROVIDERS: ADMIT Surgery; ATTEND Surgery
PROC: 0Y6J0Z2 Detachment at Left Lower Leg, Mid, Open Approach (ICD-10-PCS; principal; 2019-01-30 07:42)
DX: E11.52 Type 2 diabetes mellitus with diabetic peripheral angiopathy with gangrene (principal); I25.10 Atherosclerotic heart disease of native coronary artery without angina pectoris; I10 Essential (primary) hypertension; E78.5 Hyperlipidemia, unspecified; K21.9 Gastro-esophageal reflux disease without esophagitis; Z96.41 Presence of insulin pump (external) (internal); Z79.4 Long term (current) use of insulin; Z95.1 Presence of aortocoronary bypass graft; I25.2 Old myocardial infarction
CPT/HCPCS: 36415; 36416; 82310; 82374; 82435; 82565; 82947; 82948; 84132; 84295; 84520; 85025; 88305; 97161; 97165; J0295; J1100; J1650; J1815; J2001; J2250; J2270; J2370; J2405; J2704; J3010; J3490; J7030; L1830